=== PATIENT | female | born 1945 | race Caucasian/White ===

== ENCOUNTER 2021-08-30 14:46 | Outpatient (REF) | payer MEDICARE, OTHER, SELFPAY ==
[2021-08-30 16:53] LABS: MANUAL DIFF FLAG NO
[2021-08-30 16:56] LABS: Basophils Percent Auto 0.4 % (0-2); Eosinophils Absolute Auto 0.1 X10*3/uL (0.0-0.4); Eosinophils Percent Auto 2.2 % (0-4); Hematocrit 41.1 % (37.0-47.0); Hemoglobin 14.3 g/dl (12.0-16.0); Imm Gran Abs Auto 0.01 X10*3/uL (0.00-0.03); Imm Gran Pct Auto 0.2 % (0.0-0.4); Lymphocytes Absolute Auto 1.5 X10*3/uL (1.2-4.9); Lymphocytes Percent Auto 32.9 % (20-40); Mean Corpuscular HGB Conc 34.8 g/dl (31.0-35.0); Mean Corpuscular Volume 94.9 fL (80.0-98.0); Mean Platelet Volume 9.8 fL (9.4-12.3); Monocytes Absolute Auto 0.5 X10*3/uL (0.1-1.2); Monocytes Percent Auto 10.7 % (2-11); Neutrophils Absolute Auto 2.4 x10*3/uL (2.0-8.3); Neutrophils Percent Auto 53.6 % (45-73); Platelet Count 226 X10*3/uL (160-400); Red Blood Count 4.33 X10*6/uL (4.20-5.50); Red Cell Distribution Width 11.9 % (11.0-16.0); White Blood Count 4.5 X10*3/uL (4.8-10.8)
[2021-08-30 17:29] LABS: Alanine Aminotransferase 22 U/L (0-31); Albumin Level 4.5 g/dL (3.5-5.0); Alkaline Phosphatase 78 U/L (39-117); Anion Gap 16 (12-20); Aspartate Amino Transferase 22 U/L (5-31); Bilirubin Total 0.8 mg/dL (0.0-1.0); Blood Urea Nitrogen 18 mg/dL (9-16); Carbon Dioxide 27 mmol/L (22-29); Chloride 105 mmol/L (96-108); Estimated Glomerular Filt Rate > 60; Glucose Random 92 mg/dL (60-115); Potassium 4.7 mmol/L (3.3-5.1); Sodium 143 mmol/L (135-145); Total Protein 7.3 g/dL (6.5-8.0)
== END 2021-08-30 14:47 | disposition home or self-care (01) ==
LOC: HO.HMGCLDS 14:46
PROVIDERS: PCP Internal Medicine; Visit Provider Internal Medicine
DX: D05.12 Intraductal carcinoma in situ of left breast (principal)
CPT/HCPCS: 36415; 80053; 85025

== ENCOUNTER 2022-04-06 11:50 | Outpatient (REF) | payer MEDICARE, OTHER, SELFPAY ==
--- NOTE | ~2022-04-06 | XR_ITS ---
EXAMINATION: XR BILATERAL HIPS WITH AP PELVIS CLINICAL INFORMATION: Right hip pain. COMPARISON: None TECHNIQUE: AP view of the pelvis and AP and frog lateral views of each hip were obtained. FINDINGS: Bony alignment and mineralization are normal. The bilateral acetabular joint spaces are well-maintained and show slight subchondral sclerosis and cortical irregularity. The femoral heads are smooth. There is a sclerotic, well marginated bone island situated within the left ilium. No fracture or dislocation is seen. The sacroiliac joints are symmetric and well-maintained. The pubic symphysis is intact, with osteitis pubis. No foreign body is seen. 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 No fracture or dislocation is seen.
--- NOTE | ~2022-04-06 | XR_ITS ---
EXAMINATION: XR KNEE AP STANDING, BILATERAL CLINICAL INFORMATION: Bilateral knee pain. COMPARISON: None TECHNIQUE: AP bilateral standing view of the bilateral knees was obtained, together with bilateral lateral weightbearing views. FINDINGS: Bony alignment and mineralization are normal. The bilateral lateral, medial and patellofemoral joint space compartments are well-maintained. There is minimal peripheral osteophyte formation of the bilateral medial and patellofemoral compartments. No fracture, dislocation or joint effusion is seen bilaterally. There is no foreign body. XR/XR knee standing BI IMPRESSION: 1. There is minimal osteoarthritic change of the bilateral medial and patellofemoral joint space compartments. 2. No fracture, dislocation or joint effusion is seen bilaterally.
== END 2022-04-06 11:51 | disposition home or self-care (01) ==
LOC: HO.HMGCX 11:50
PROVIDERS: PCP Internal Medicine; Visit Provider Internal Medicine
DX: M25.551 Pain in right hip (principal); M25.552 Pain in left hip; M25.561 Pain in right knee; M25.562 Pain in left knee
CPT/HCPCS: 73521; 73565

== ENCOUNTER 2024-03-20 12:07 | Outpatient (AMB) | payer MEDICARE, OTHER, SELFPAY ==
[2024-03-20 12:56] VITALS: BP 130/70; PULSE 89; TEMP 36.9; O2SAT 99; BMI 22.9
--- NOTE | 2024-03-20 12:56 | AM.OFFWIN_ITS ---
Intake Vital Signs 03/20/24 12:56 Height 5 ft 6 in Weight 142 lb BMI 22.9 BP 130/70 Blood Pressure Location Lt brachial Position Sitting Pulse 89 Pulse Source Pulse Oximeter Temp 98.4 F Temp Source Oral Pulse Oximetry (%) 99 Oxygen Delivery Method Room Air Intake Visit Reasons: EP-extreme body ache Intake Note: Pt is here today for a walk in visit. Pt c/o chills, body aches for a month. Patient Tobacco Use Status: Never used Tobacco Allergies Egg/Pro Allergy (Unknown, Uncoded 03/20/24 13:00) sick to her stomach HPI HPI Comments History of Present Illness Details 78 y/o female patient who presents to [facility] walk in clinic with c/o generalized weakness, body and muscle aches for few months now. She has H/o Right breast CA, s/p Lumpectomy and radiation 2022. She is being followed by [facility] Oncology. Pt has an appointment with PCP Apr 11. [facility] Medical History Abnormal colonoscopy Annual physical exam Breast mass, left Ductal carcinoma in situ (DCIS) of left breast Hearing loss Hyperlipidemia Insomnia Mammogram normal Osteopenia Osteoporosis Toenail fungus Vitamin D deficiency Surgical History No pertinent past surgical history Family History Father No problems noted. Mother Diabetes Melanoma Uterine cancer Brother Substance use disorder Social History Housing: House Alcohol intake: current Alcohol intake frequency: a few times a week Patient Tobacco Use Status: Never used Tobacco e-Cigarette/Vaping Use: Never Used Current occupational status: retired Cognitive needs: No Hearing needs: Yes Vision needs: Yes Review of Systems Const All systems reviewed & are unremarkable except as noted in HPI and below Physical Exam Vital Signs: Last Vital Signs Temp 98.4 F 03/20/24 12:56 Pulse 89 03/20/24 12:56 BP 130/70 03/20/24 12:56 Pulse Ox 99 03/20/24 12:56 Oxygen Delivery Method Room Air 03/20/24 12:56 BMI result Body Mass Index 22.9 Const General: no acute distress Nutritional Appearance: underweight Orientation/consciousness: patient oriented x3 Resp Effort & Inspection: normal respiratory effort and able to speak in complete sentences Auscultation: clear to auscultation bilaterally, no crackles, no rales, no rhonchi and no wheezes Cardio Heart sounds: S1 normal heart sound present and S2 normal heart sound present Skin Other: Skin dry and Pale. Warm to touch. General skin exam: dry skin Neuro General: patient oriented x3, gait normal and moves all extremities Psych Speech and movement: Normal speech and movement present Assessment & Plan Assessment & Plan (1) Fatigue: Code(s): R53.83 - Other fatigue Qualifiers: Fatigue type: unspecified Qualified Code(s): R53.83 - Other fatigue Plan: Pt to f/u with PCP for further evaluation. She needs recent Lab work. Advised Pt to f/u with her Oncology for routine F/U. (2) Weakness generalized: Code(s): R53.1 - Weakness Plan: Pt to f/u with PCP for further evaluation. She needs recent Lab work. Advised Pt to f/u with her Oncology for routine F/U. Advised Emergency Room visit if symptoms worse. Coding Level of Care Code Est Pt Level 3 (19184) Diagnoses Fatigue, unspecified type R53.83 Fatigue type: unspecified Weakness generalized R53.1 Time Spent (min) 15
== END 2024-03-20 13:42 | disposition home or self-care (01) ==
PROVIDERS: PCP Internal Medicine; Visit Provider Nurse Practitioner Family
DX: R53.83 Other fatigue (principal); R53.1 Weakness

== ENCOUNTER → 2024-03-20 12:07 | Outpatient (BNVA) | payer MEDICARE, OTHER, SELFPAY | PROVIDERS: PCP Internal Medicine; Visit Provider Nurse Practitioner Family | DX: R53.83 Other fatigue (principal); R53.1 Weakness | CPT/HCPCS: 99212 ==

== ENCOUNTER → 2024-03-28 14:11 | Outpatient (BNVA) | payer MEDICARE, OTHER, SELFPAY | PROVIDERS: PCP Internal Medicine; Visit Provider Internal Medicine | DX: M35.3 Polymyalgia rheumatica (principal); C50.911 Malignant neoplasm of unspecified site of right female breast | CPT/HCPCS: 96127; 99212 ==

== ENCOUNTER 2024-05-08 10:03 | Outpatient (REF) | payer MEDICARE, OTHER, SELFPAY ==
--- OUTSIDE RECORDS SUMMARY | 2024-05-08 11:42 | XMS_ITS | Clinical Summary ---
Author Organization [facility] Address [address] [place] [address] Care Team Providers Care Track Superintendent Name Role Phone Mary Crespo MD Primary Care Provider [phone] Allergies No known active allergies Medications Medication Sig Dispensed Refills Start Date End Date Status anastrozole (ARIMIDEX) 1 MG tablet Take 1 tablet (1 mg total) by mouth daily 0 Active Multiple Vitamin (MULTI VITAMIN DAILY PO) Take by mouth. 0 Active Biotin 1000 MCG CHEW Chew by mouth. 0 Active Lapoint-3 Fatty Acids (FISH OIL PO) Take by mouth. 0 Active vitamin D3 (cholecalciferol) 25 MCG (1000 UT) tablet Take 1 tablet (25 mcg total) by mouth daily. 0 Active Misc Natural Products (GINKOGIN PO) Take by mouth. 0 Active Apoaequorin (PREVAGEN PO) Take by mouth. 0 Active Turmeric 500 MG TABS Take by mouth. 0 Active Multiple Minerals-Vitamins (UUFNLZA-KAKVGARYH-LQX C-D3 PO) Take by mouth. 0 Active Active Problems No known active problems Family History Medical History Relation Name Comments Cancer Mother Melonoma Relation Name Status Comments Mother Social History Tobacco Use Types Packs/Day Years Used Date Smoking Tobacco: Never Smokeless Tobacco: Never Alcohol Use Standard Drinks/Week Comments Yes 0 (1 standard drink = 0.6 oz pur e alcohol) Social Sex and Gender Information Value Date Recorded Sex Assigned at Not on file Gender Identity Not on file Sexual Orientation Not on file Job Start Date Occupation Industry Not on file Not on file Not on file Last Filed Vital Signs Vital Sign Reading Time Taken Comments Blood Pressure 125/59 08/24/2023 9:15 AM EDT Pulse 68 08/24/2023 9:15 AM EDT Temperature 36.7 ??C (98.1 ??F) 08/24/2023 9:15 AM ED T Respiratory Rate - - Oxygen Saturation 100% 08/24/2023 9:15 AM EDT Inhaled Oxygen Concentration - - Weight 61.2 kg (135 lb) 08/24/2023 9:15 AM EDT Height 167.6 cm (5' 6 ) 01/02/2023 9:34 AM EDT Body Mass Index 21.79 01/02/2023 9:34 AM EDT Plan of Treatment Health Maintenance Due Date Last Done Comments Hepatitis C Screening 1945 COVID-19 Vaccine (#1) 1951 Pneumococcal Vaccine (1 of 2 - PCV) 1952 Depression Screening 1958 Preventative Health Evaluation 1964 DTap / Tdap / Td (1 - Tdap) 1965 Shingrix-Zoster Vaccine (1 of 2) 1965 Fall Risk Assessment 2011 Osteoporosis Screening (DEXA Scan) 2011 RSV Adult > 60+ Yrs or Pregn ant (1 - 1-dose 75+ series) 2021 Influenza Vaccine (#1) 2023 Hepatitis B Vaccines Aged Out No long er eligible based on patient's age to complete this topic RSV Ped < 20 months Aged Out No longe r eligible based on patient's age to complete this topic Care Teams Track Superintendent Relationship Specialty Start Date End Date Mary Crespo MD [address] [facility] [place] [address] PCP - General Licensed Practical Nurse Instructor 08/15/21
--- OUTSIDE RECORDS SUMMARY | 2024-05-08 11:42 | XMS_ITS | Continuity of Care Document ---
Author Organization [facility] Address [address] [place] [id number] Care Team Providers Care [employer] Name Role Phone Mary Crespo MD Primary Care Physician Encounter [facility] Date(s): 04/18/24 - 04/19/[address] [id number] Encounter Diagnosis Exacerbation of PMR(Final) - 04/16/24 Discharge Disposition: A-D/C Home Attending Physician: Raad Rojas MD, Adriana Lea Admitting Physician: Carla Bueno MD Referring Physician: Not on Staff, Referring MD Encounter Type: Disch IP Allergies, Adverse Reactions, Alerts Substance Criticality Severity Reaction Reaction Severity Status Apples Eggs (edible) Active Egg Allergy Active Medications acetaminophen 500 mg oral tablet 2 tablet = 1,000 mg, By Mouth, 3 times a day, PRN as needed for pain, # 24 tablet, 0 Refills, Maintenance, 03/23/24 2:45:00 PM EST, Tablet, [facility], Partial fill upon patient request if the prescription is for a schedule II opioid drug., 167.6, cm, 03/23/24 7:09:00 EST, Height, 63.8, kg, 03/21/24 19:08:00 EST, Dry Weight Start Date: 03/23/24 Status: Ordered Quantity: 24.0 Unit: tablet Repeat number: 1 Acetaminophen Tablet 650 mg, Tablet, By Mouth, Every 4 hours, PRN for Pain , Mild, Temperature Greater than 100.5, Routine, 04/16/24 3:34:00 PM EST Start Date: 04/16/24 Stop Date: 04/20/24 Status: Discontinued Repeat number: 1 anastrozole 1 mg oral tablet 1 tablet = 1 mg, By Mouth, Daily, # 30 tablet, 0 Refills, Maintenance, 03/21/24 8:51:00 PM EST, Tablet, Partial fill upon patient request if the prescription is for a schedule II opioid drug. Start Date: 03/21/24 Status: Ordered Quantity: 30.0 Unit: tablet Repeat number: 1 calcium-vitamin D 250 mg-200 intl units oral tablet 1 tablet, By Mouth, Every Sunday, Sunday and Sunday, # 6 tablet, 0 Refills, Maintenance, :27:00 PM EST, Tablet, [facility], Partial fill upon patient request if the prescription is for a schedule II opioid drug., 1 tablet By Mouth Every Sunday, Sunday and Sunday,x14 days, 167, cm, 04/19/24 1:40:00 EST, Height, 61, kg, 04/17/24 2:51:00 EST, Dry Weight Start Date: 04/19/24 Stop Date: 05/03/24 Status: Ordered Quantity: 6.0 Unit: tablet Repeat number: 1 famotidine 40 mg oral tablet 1 tablet = 40 mg, By Mouth, Daily Start Date: 04/16/24 Status: Ordered Repeat number: 1 oxyCODONE 5 mg oral tablet 5 mg, 1, tablet, By Mouth, Every 6 hours, PRN, # 7 tablet, Refills 0, Tot. Refills 0, Maintenance, Pain , Severe, 03/23/24 2:45:00 PM EST, Route to Pharmacy Electronically, [facility], Partial fill upon patient request if the prescription is for a schedule II opioid drug., 167.6, cm, 03/23/24 7:09:00 EST, Height, 63.8, kg, 03/21/24 19:08:00 EST, Dry Weight Start Date: 03/23/24 Status: Ordered Quantity: 7.0 Unit: tablet Repeat number: 1 predniSONE 50 mg oral tablet 1 tablet = 50 mg, By Mouth, Daily, for 14 days, # 14 tablet, 0 Refills, Acute 05/03/24 1:27:00 PM EST, 04/19/24 1:27:00 PM EST, Tablet, [facility], Partial fill upon patient request if theprescription is for a schedule II opioid drug., 167, cm, 04/19/24 1:40:00 EST, Height, 61, kg, 04/17/24 2:51:00 EST, Dry Weight Start Date: 04/19/24 Stop Date: 05/03/24 Status: Ordered Quantity: 14.0 Unit: tablet Repeat number: 1 Results Radiology Reports * Exam Date Time Procedure Performing Provider Status 04/16/24 11:[address] Cervical Spine W/O Contrast Gail Coffey; Auth (Verified) Notes: (CT Cervical Spine W/O Contrast) Reason For Exam: Trauma RESULT: CT Cervical Spine W/O Contrast CT Head/Brain W/O Contrast, CT Cervical Spine W/O Contrast Hx of Present Illness: pt with h of MPR. was getting off the toilet and felt dizzy and syncopized. Thinks she hit head. Not on thinners. Is in excruciating pain from PMR; Reason: Trauma; Clinical Question(s): Hematoma COMPARISON: CT brain 03/21/2024 TECHNIQUE: Incremental CT without contrast through the head was formatted in axial and coronal plane. Spiral CT without contrast through the cervical spine was formatted in 3 planes. Automatic tube modulation was used for the cervical spine and iterative dose reconstruction was used for both the head and cervical spine to optimize scan parameters and image quality. CTDIvol Body: 8.30 mGy, DLP Body: 227 mGy*cm. CTDIvol Head: 39.80 mGy, DLP Head: 672 mGy*cm. FINDINGS - CT BRAIN: BRAIN: No parenchymal hemorrhage, midline shift or mass effect. Granger-white matter differentiation is intact. No acute infarct. No white matter lesions. Mild prominence of the ventricles and sulci consistent with cortical and cerebellar parenchymal volume loss. EXTRA-AXIAL SPACES: No subdural or epidural collections. CALVARIUM, SKULL BASE AND SOFT TISSUES: No fractures or suspicious bony lesions. Trace right mastoid effusion. Remaining visualized paranasal sinuses and mastoid air cells are clear. Visualized orbits and globes are intact. The extracranial soft tissues are unremarkable. FINDINGS - CT CERVICAL SPINE: SPINE: No fracture. No acute osseous abnormalities. There is straightening and partial reversal of cervical lordosis. Grade 1 anterolisthesis C3 on C4.There is moderate multilevel degenerative loss of disc height with endplate osteophytes. Moderate multilevel facet arthropathy with partial fusion of C2-C3 facets. No locked or perched facet. OTHER BONES: Partially-imaged clavicles, upper ribs and scapulae are intact. SOFT TISSUES AND LUNG APICES: Soft tissues unremarkable. Biapical pleural-parenchymal scarring. IMPRESSION: No acute abnormality of the head or cervical spine. Multilevel degenerative changes. WSN: [id number] Ordering Physician: Seth Allred Dictated By: Rafa Hahn MD Dictated Date/Time: 04/16/24 12:13 p Reviewed By: Rafa Hahn MD Signed By: Rafa Hahn MD Signed Date/Time: 04/16/24 12:13 pm Transcribed By: ROME Transcribed Date/Time: 04/16/24 12:05 pm * Exam Date Time Procedure Performing Provider Status 04/16/24 11:[address] Head/Brain W/O Contrast Gail Tello; Auth (Verified) Notes: (CT Head/Brain W/O Contrast) Reason For Exam: Trauma RESULT: CT Head/Brain W/O Contrast CT Head/Brain W/O Contrast, CT Cervical Spine W/O Contrast Hx of Present Illness: pt with h of MPR. was getting off the toilet and felt dizzy and syncopized. Thinks she hit head. Not on thinners. Is in excruciating pain from PMR; Reason: Trauma; Clinical Question(s): Hematoma COMPARISON: CT brain 03/21/2024 TECHNIQUE: Incremental CT without contrast through the head was formatted in axial and coronal plane. Spiral CT without contrast through the cervical spine was formatted in 3 planes. Automatic tube modulation was used for the cervical spine and iterative dose reconstruction was used for both the head and cervical spine to optimize scan parameters and image quality. CTDIvol Body: 8.30 mGy, DLP Body: 227 mGy*cm. CTDIvol Head: 39.80 mGy, DLP Head: 672 mGy*cm. FINDINGS - CT BRAIN: BRAIN: No parenchymal hemorrhage, midline shift or mass effect. Granger-white matter differentiation is intact. No acute infarct. No white matter lesions. Mild prominence of the ventricles and sulci consistent with cortical and cerebellar parenchymal volume loss. EXTRA-AXIAL SPACES: No subdural or epidural collections. CALVARIUM, SKULL BASE AND SOFT TISSUES: No fractures or suspicious bony lesions. Trace right mastoid effusion. Remaining visualized paranasal sinuses and mastoid air cells are clear. Visualized orbits and globes are intact. The extracranial soft tissues are unremarkable. FINDINGS - CT CERVICAL SPINE: SPINE: No fracture. No acute osseous abnormalities. There is straightening and partial reversal of cervical lordosis. Grade 1 anterolisthesis C3 on C4.There is moderate multilevel degenerative loss of disc height with endplate osteophytes. Moderate multilevel facet arthropathy with partial fusion of C2-C3 facets. No locked or perched facet. OTHER BONES: Partially-imaged clavicles, upper ribs and scapulae are intact. SOFT TISSUES AND LUNG APICES: Soft tissues unremarkable. Biapical pleural-parenchymal scarring. IMPRESSION: No acute abnormality of the head or cervical spine. Multilevel degenerative changes. WSN: [id number] Ordering Physician: Seth Allred Dictated By: Rafa Hahn MD Dictated Date/Time: 04/16/24 12:13 p Reviewed By: Rafa Hahn MD Signed By: Raaf Hahn MD Signed Date/Time: 04/16/24 12:13 pm Transcribed By: ROME Transcribed Date/Time: 04/16/24 12:05 pm Vital Signs Most recent to oldest [Reference Range]: 1 2 3 Height 167 cm (04/19/24 1:40 AM) 167 cm (04/18/24 8:50 PM) 167 cm (04/18/24 1:21 PM) Weight 61.0 kg (04/18/24 1:21 PM) 61.0 kg (04/17/24 1:56 AM) Oxygen Saturation [94-100 %] 98 % (04/19/24 2:00 PM) 100 % (04/19/24 8:00 AM) 98 % (04/19/24 1:40 AM) Pulse Rate [55-90 bpm] 72 bpm (04/19/24 2:00 PM) 87 bpm (04/19/24 8:00 AM) 77 bpm (04/19/24 1:40 AM) Body Mass Index [18.5-24.99 kg/m2] 21.87 kg/m2 (04/18/24 1:21 PM) 21.87 kg/m2 (04/17/24 1:56 AM) Blood Pressure [90-138/55-84 mm Hg] 125/50mm Hg (04/19/24 2:00 PM) 128/49mm Hg (04/19/24 8:00 AM) 120/57mm Hg (04/19/24 1:40 AM) Respiratory Rate [16-30 br/min] 16 br/min (04/19/24 2:00 PM) 16 br/min (04/19/24 8:00 AM) 18 br/min (04/19/24 2:42 AM) Temperature [96.8-100.4 DegF] 98.0 DegF (04/19/24 2:00 PM) 97.9 DegF (04/19/24 8:00 AM) 97.6 DegF (04/19/24 1:40 AM) Mode of Delivery (Oxygen) Room air (04/19/24 2:00 PM) Room air (04/19/24 8:00 AM) Room air (04/19/24 1:40 AM) Blood pressure sites Arm, left (04/19/24 2:00 PM) Arm, left (04/19/24 8:00 AM) Arm, right (04/19/24 1:40 AM) Temperature Route Oral (04/19/24 2:00 PM) Oral (04/19/24 8:00 AM) Oral (04/19/24 1:40 AM) Dry Weight 61.0 kg (04/17/24 1:56 AM) History and physical note * Event Display: History and Physical Hospital Authored Date: Admission evaluation note * Sugar Booth MD: PERFORM Event Display: Admission Note Authored Date: [id number] Patient: ??DIANA DEL RIO ? Age:??78 Years?Sex:??Female?:??1945?? Chief Complaint/Reason for Consultation fell at 2am hit head no LOC no thinners. stated she was dizzy after. was able to get herself up standing but increasingly more weak History of Present Illness 78-year-old female with past medical history of breast cancer in remission who presented to ED withgeneralized weakness. ?? Patient has been having??generalized muscle weakness and pain??for several months??which??she was diagnosed with PMR??during last admissions in March??and was started on steroid,??Patient reported that she continued taking prednisone 20 mg??which she thinks??is helping??during the morning but herlower extremity pain was getting worse??particularly at night??and yesterday her legs also gave outcausing her to be nauseated dizzy and striking right side of the head on ground.?? Although patientwas able to get up by herself but has been??difficulty ambulating without assistance.?? Patient lives alone??at baseline??and normally??independent.?Denies smoking or illicit drug use,??has been intermittently having fever as well.?Patient denies chest pain, dysuria, hematuria, cough, abdominal pain,??sore throat,??neck stiffness/pain,??headache.? Temperature 99.4, BP 121/52, on room air saturating 97, heart rate 82 Hemoglobin 11.3 at baseline, MCV 101.2 Sedimentation 58 Glucose 130 Creatinine 0.7 CRP 3.2 CK 23, high sen troponin less than 6 UA shows 1 WBC, negative nitrates and leukocyte not suggestive of infection CT head and cervical without acute abnormality, multilevel degenerative changes > There is straightening and partial reversal of cervical lordosis. Grade 1 anterolisthesis C3 on C4. There is moderate multilevel degenerative loss of disc height with endplate osteophytes. Moderate multilevel facetarthropathy with partial fusion of C2-C3 facets. No locked or perched facet. EKG shows normal sinus rhythm without acute ST-T changes Oxycodone 2.5 mg given in ED ?? Patient recently hospitalized between 03/21 to 03/23 due to generalized body pain as well as concern for shuffling gait.?? Patient had an MRI brain which showed no evidence of infarct, mass effect or abnormal findings.?? Minimal T2 signal abnormality in the supratentorial white matter is nonspecific.?? Sinus disease.?? MRI lumbar showed mild degenerative changes with only mild canal stenosis at L4-L5, no nerve root impingement at any level, mild nonspecific edema within the posterior paraspinal muscles, nonspecific fluid within the right posterior pelvis, clinical correlation. Patient was discharged with prednisone 20 mg for 14 days,??PCP and rheumatology follow-up.?? PT also recommended outpatient??PT.??it was noted to be significant improvement with prednisone on the second day??which is why??it was thought to be 2/2??PMR.?? Review of Systems None except as above Objective Vital Signs?? Temperature: 99.2 DegF (04/16/24 17:07:00) Temperature Route: Oral (04/16/24 17:07:00) Pulse Rate: 82 bpm (04/16/24 17:07:00) Respiratory Rate: 18 br/min (04/16/24 19:33:00) Systolic Blood Pressure: 121 mm Hg (04/16/24 17:07:00) Diastolic Blood Pressure:??52 mm Hg??Low (04/16/24 17:07:00) Blood pressure sites: Arm, right (04/16/24 17:07:00) Mean Arterial Pressure: 75 mm Hg (04/16/24 17:07:00) Pulse Pressure: 69 mm Hg (04/16/24 17:07:00) Oxygen Saturation: 97 % (04/16/24 17:07:00) Mode of Delivery (Oxygen): Room air (04/16/24 17:07:00) Early Warning Score: 0 (04/16/24 19:33:54) ?? Physical Exam Gen- not in acute distress,comfortably lying on bed, speaking in full sentences. HEENT- Normocephalic, Atraumatic, No pallor, icterus Neck-supple, no JVD Heart-S1S2(+),??regular, no murmurs. lungs- Clear, b/l air entry, no wheezing. Abdomen-soft, nontender,nondistended,??bowel sounds present, No guarding. Extremities-pulses palpable. ??Patient has??tenderness??on extremities bilateral upper shoulder,??bilateral lower extremities??most prominent on the knees,??no swelling,??has at least??3-4 out of 5??strength in bilateral lower and upper extremities,??no remarkable sensation loss.?? Neurological- AAO??3.?? Psychiatric-patient???s mood is stable. Assessment/Plan Diagnoses Anemia ??(D64.9) Fall ??(W19.XXXA) History of breast cancer ??(Z85.3) PMR (polymyalgia rheumatica) ??(M35.3) ?? Assessment:??78-year-old female with past medical history of breast cancer in remission who presented to ED with generalized weakness. ?? Fall (W19.XXXA):??Fall at night when she woke up and went to bathroom,??denies LOC was awake and alert and oriented and stand up by herself.?Reports her legs gave up.?Trauma workup is negative.??CT head and CT cervical.?? EKG normal sinus rhythm, Trop negative denies chest pain ?? Orthostatic vitals PT eval ?? PMR (polymyalgia rheumatica) (M35.3):??Patient presented with??several months??history of??bilateral??upper and lower extremity muscle and joint pains.?She has elevated ESR and??mildly elevated CRP.?She had a robust response to prednisone??in March??and was??presumed to be PMR.?Patient was taking prednisone 20 mg daily,??which she reports having??improvement during the days but at night she still have pain and weakness.?She had a fall yesterday at night,??denies LOC.??LARS panel was negative on 03/2024, RF slightly elevated to 17. ?? Plan: Switch prednisone??20 mg daily to 10 mg twice daily resume Famotidine for GI prophylaxis?? Rheumatology appointment scheduled in May 01 Added on TSH?? PT eval Tylenol for mild to moderate pain??and Oxycodone 5 mg as needed for severe pain Will monitor the response from??twice daily prednisone,??if no significant improvement??patient might be also having fibromyalgia??and may benefit from starting??antidepressant ?? 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 Added on??iron, TIBC, ferritin, B12 ?? VTE Prophylaxis:??Lovenox subcu ?VTE Prophylaxis Assessment:??VTE Prophylaxis Ordered ?? History of breast cancer (Z85.3):??Resume anastrozole ?? Discharge Planning:??Pending clinical course, PT eval? Ongoing Medical Necessity:??Polyarthralgia, polymyalgia ?? Code Status:??DNR/DNI confirmed with patient ?Order Code Status:??Code Status Ordered ?? Pt is seen on 04/16 ? Histories Allergies Allergies ?(Active and Proposed Allergies Only) Egg Allergy? (Severity: Unknown severity, Onset: Unknown) Apples? (Severity: Unknown severity, Onset: Unknown) ?Reactions: Eggs (edible) ? Past Medical History/Problem List No problems documented. ? Past Surgical History No surgery history documented. ? Social History No social history documented. ? Family History No Family History documented. ? Medications Home Medications Acetaminophen (acetaminophen 500 mg oral tablet)??2 tab(s) 1,000 Milligram By Mouth 3 times a day as needed as needed for pain Anastrozole (anastrozole 1 mg oral tablet)??1 tab(s) 1 Milligram By Mouth Daily Famotidine (famotidine 40 mg oral tablet)??1 tab(s) 40 Milligram By Mouth Daily Oxycodone (oxyCODONE 5 mg oral tablet)??5 Milligram 1 tablet By Mouth Every 6 hours as needed Pain , Severe PredniSONE (predniSONE 20 mg oral tablet)??1 tab(s) 20 Milligram By Mouth Daily ? Inpatient Medications Medications (15) Active SCHEDULED: (5) Anastrozole 1 mg Tablet (anastrozole 1 mg oral tablet) ??1 mg, By Mouth, Daily Enoxaparin 40 mg Inj (Enoxaparin Inj) ??40 mg 0.4 mL, Subcutaneous Injection, Daily Famotidine 20 mg Tablet (famotidine 20 mg oral tablet) ??20 mg, By Mouth, 2 times a day NaCl 0.9% Flush 3ml (NaCL 0.9% Flush) ??3 mL, IV Push, Every 8 hours PredniSONE 5 mg Tablet (predniSONE 20 mg oral tablet) ??10 mg, By Mouth, Every 12 hours CONTINUOUS: (0) PRN: (10) Acetaminophen 325 mg Tablet (Acetaminophen Tablet) ??650 mg, By Mouth, Every 4 hours Dextromethorphan-Guaifenesin 20 mg-200 mg/10 mL Liqu UD (Robitussin DM Liquid) ??10 mL, By Mouth, Every 4 hours Docusate Sodium 100 mg Capsule (Docusate Sodium Capsule) ??100 mg 1 capsule, By Mouth, 2 times a day Melatonin 3 mg Tablet (Melatonin Tablet) ??3 mg, By Mouth, Daily at bedtime NaCl 0.9% Flush 3ml (NaCL 0.9% Flush) ??3 mL, IV Push, Every 8 hours Ondansetron 2mg/mL Inj (2mL Vial) (Ondansetron Inj) ??4 mg, IV Push Slowly, Every 30 minutes OxyCODONE 5 mg IR Tablet (oxyCODONE 5 mg oral tablet) ??5 mg, By Mouth, Every 6 hours Polyethylene Glycol 17 Gm Powder (MiraLax Powder) ??17 Gm 1 pack/packet, By Mouth, Daily Senna Tablet ??8.6 mg 1 tablet, By Mouth, 2 times a day Simethicone 80 mg Chewable Tablet (Simethicone Tablet) ??80 mg, Chew, 3 times a day ? Results Recent Labs BLOOD COUNT & DIFF WBC 10.0 k/mm3 ()?? 04/16/2024 11:47 RBC 3.35 m/mm3 (Low)?? 04/16/2024 11:47 Hgb 11.3 Gm/dL (Low)?? 04/16/2024 11:47 Hct 33.9 % (Low)?? 04/16/2024 11:47 MCV 101.2 femtoliters (High)?? 04/16/2024 11:47 MCH 33.7 pg ()?? 04/16/2024 11:47 MCHC 33.3 Gm/dL ()?? 04/16/2024 11:47 Platelet Count 235 k/mm3 ()?? 04/16/2024 11:47 RDW-SD 48.4 femtoliters (High)?? 04/16/2024 11:47 MPV 9.0 femtoliters (Low)?? 04/16/2024 11:47 Nucleated RBC (Automated) 0.0 #/100 WBC'S ()?? 04/16/2024 11:47 Abs. NRBC 0.0 k/mm3 ()?? 04/16/2024 11:47 Abs. Neut 9.2 k/mm3 (High)?? 04/16/2024 11:47 Abs. Lymph 0.4 k/mm3 (Low)?? 04/16/2024 11:47 Abs. Cass 0.3 k/mm3 (Low)?? 04/16/2024 11:47 Abs. Eo 0.0 k/mm3 ()?? 04/16/2024 11:47 Abs. Baso 0.0 k/mm3 ()?? 04/16/2024 11:47 Neut % 92.8 % (High)?? 04/16/2024 11:47 Lymph % 3.7 % (Low)?? 04/16/2024 11:47 Cass % 2.9 % (Low)?? 04/16/2024 11:47 Eos % 0.0 % ()?? 04/16/2024 11:47 Baso % 0.2 % ()?? 04/16/2024 11:47 Imm Gran 0.4 % ()?? 04/16/2024 11:47 Abs. Imm Gran 0.0 k/mm3 ()?? 04/16/2024 11:47 ?? CARDIAC CK, Total 23 units/L ()?? 04/16/2024 11:47 High Sensitivity Troponin (HSTnT) <6 ng/L ()?? 04/16/2024 11:47 ?? CHEM GENERAL Sodium 140 mmol/L ()?? 04/16/2024 11:47 Potassium 4.2 mmol/L ()?? 04/16/2024 11:47 Chloride 105 mmol/L ()?? 04/16/2024 11:47 Bicarbonate Level 24 mmol/L ()?? 04/16/2024 11:47 Anion Gap 11 mmol/L ()?? 04/16/2024 11:47 Glucose Level 130 mg/dL (High)?? 04/16/2024 11:47 BUN 19 mg/dL ()?? 04/16/2024 11:47 Creatinine-Blood 0.70 mg/dL ()?? 04/16/2024 11:47 Estimated GFR Creatinine 89 ML/MIN/1.73 M2 ()?? 04/16/2024 11:47 Calcium 9.4 mg/dL ()?? 04/16/2024 11:47 Protein, Total 6.3 Gm/dL ()?? 04/16/2024 11:47 Albumin 3.7 Gm/dL ()?? 04/16/2024 11:47 AG Ratio 1.4 ()?? 04/16/2024 11:47 Alkaline Phosphatase 90 units/L ()?? 04/16/2024 11:47 AST (SGOT) 24 units/L ()?? 04/16/2024 11:47 ALT (SGPT) 14 units/L ()?? 04/16/2024 11:47 Bilirubin, Total 0.8 mg/dL ()?? 04/16/2024 11:47 C-Reactive Protein 3.2 mg/dL (High)?? 04/16/2024 11:47 ?? HEME OTHER Sed Rate 58 mm/hr (High)?? 04/16/2024 11:47 ?? UA/URINALYSIS Appear/Color, Urine LIGHT YELLOW ()?? 04/16/2024 11:32 Clarity CLEAR ()?? 04/16/2024 11:32 Specific Bastian, Urine 1.013 ()?? 04/16/2024 11:32 pH, Urine 7.5 ()?? 04/16/2024 11:32 Albumin, Urine NEGATIVE ()?? 04/16/2024 11:32 Glucose, Urine NEGATIVE ()?? 04/16/2024 11:32 Ketones, Urine NEGATIVE ()?? 04/16/2024 11:32 Bilirubin, Urine NEGATIVE ()?? 04/16/2024 11:32 Hemoglobin, Urine NEGATIVE ()?? 04/16/2024 11:32 Nitrite, Urine NEGATIVE ()?? 04/16/2024 11:32 Leukocyte, Urine NEGATIVE ()?? 04/16/2024 11:32 Urobilinogen 2 mg/dL (Abnormal)?? 04/16/2024 11:32 WBC's, Urine 1 /HPF ()?? 04/16/2024 11:32 RBC's, Urine 2 /HPF ()?? 04/16/2024 11:32 Squamous Epith 1 /HPF ()?? 04/16/2024 11:32 Culture Indication CULTURE NOT INDICATED ()?? 04/16/2024 11:32 ? Abnormal Labs ?? BLOOD COUNT & DIFF Abs. Imm Gran?0.0 k/mm3 ()?04/16/2024 11:47 Abs. Lymph?0.4 k/mm3 (Low)?04/16/2024 11:47 Abs. Cass?0.3 k/mm3 (Low)?04/16/2024 11:47 Abs. NRBC?0.0 k/mm3 ()?04/16/2024 11:47 Abs. Neut?9.2 k/mm3 (High)?04/16/2024 11:47 Hct?33.9 % (Low)?04/16/2024 11:47 Hgb?11.3 Gm/dL (Low)?04/16/2024 11:47 Imm Gran?0.4 % ()?04/16/2024 11:47 Lymph %?3.7 % (Low)?04/16/2024 11:47 MCV?101.2 femtoliters (High)?04/16/2024 11:47 MPV?9.0 femtoliters (Low)?04/16/2024 11:47 Cass %?2.9 % (Low)?04/16/2024 11:47 Neut %?92.8 % (High)?04/16/2024 11:47 Nucleated RBC (Automated)?0.0 #/100 WBC'S ()?04/16/2024 11:47 RBC?3.35 m/mm3 (Low)?04/16/2024 11:47 RDW-SD?48.4 femtoliters (High)?04/16/2024 11:47 ?? CARDIAC High Sensitivity Troponin (HSTnT)?<6 ng/L () ?:47 ?? CHEM GENERAL AG Ratio?1.4 ()?04/16/2024 11:47 C-Reactive Protein?3.2 mg/dL (High)?04/16/2024 11:47 Estimated GFR Creatinine?89 ML/MIN/1.73 M2 ()?04/16/2024 11:47 Glucose Level?130 mg/dL (High)?04/16/2024 11:47 ?? HEME OTHER Sed Rate?58 mm/hr (High)?04/16/2024 11:47 ?? UA/URINALYSIS Albumin, Urine?NEGATIVE ()?04/16/2024 11:32 Appear/Color, Urine?LIGHT YELLOW ()?04/16/2024 11:32 Bilirubin, Urine?NEGATIVE ()?04/16/2024 11:32 Clarity?CLEAR ()?04/16/2024 11:32 Culture Indication?CULTURE NOT INDICATED ()?04/16/2024 11:32 Glucose, Urine?NEGATIVE ()?04/16/2024 11:32 Hemoglobin, Urine?NEGATIVE ()?04/16/2024 11:32 Ketones, Urine?NEGATIVE ()?04/16/2024 11:32 Leukocyte, Urine?NEGATIVE ()?04/16/2024 11:32 Nitrite, Urine?NEGATIVE ()?04/16/2024 11:32 Urobilinogen?2 mg/dL (Abnormal)?04/16/2024 11:32 ?? Note: Critical results are displayed in red. ? Urinalysis Albumin, Urine: NEGATIVE (11:32) Appear/Color, Urine: LIGHT YELLOW (11:32) Bilirubin, Urine: NEGATIVE (11:32) Clarity: CLEAR (:32) Culture Indication: CULTURE NOT INDICATED (11:32) Glucose, Urine: NEGATIVE (11:32) Hemoglobin, Urine: NEGATIVE (11:32) Ketones, Urine: NEGATIVE (11:32) Leukocyte, Urine: NEGATIVE (11:32) Nitrite, Urine: NEGATIVE (11:32) pH, Urine: 7.5 (11:32) RBC's, Urine: 2 /HPF (11:32) Specific Bastian, Urine: 1.013 (11:32) Squamous Epith: 1 /HPF (11:32) Urobilinogen: 2 mg/dL Abnormal (11:32) WBC's, Urine: 1 /HPF (11:32) ?? Blood Gases?? No qualifying data available. ? EKG study * Event Display: ECG 12-Lead Authored Date: Please click on pdf link to open report * Event Display: ECG 12-Lead Authored Date: [id number] Ventricular Rate: 86 BPM Atrial Rate: 86 BPM P-R Interval: 148 ms QRS Duration: 74 ms Q-T Interval: 340 ms QTC Calculation(Bazett): 406 ms P Douglass: 76 degrees R Douglass: 49 degrees T Douglass: 68 degrees Normal sinus rhythm Normal ECG No previous ECGs available Confirmed by [facility] ([id number] on 04/17/2024 8:38:20 AM [place]: DONAVON NARVAEZ,[place] [facility] * Zuleyka Blount RN: PERFORM, SIGN, VERIFY Event Display: [facility] Authored Date: [id number] Patient: DIANA DEL RIO Age: 78 years Sex: Female : 1945 Associated Diagnoses: None Author: Zuleyka Blount RN Findings Problem Related to Alteration in Comfort : Alteration in Comfort/new 04/19/2024 15:00 EST Alteration in Comfort Related to Disease process, Other: PMR Goals & Outcomes: Comfort Pt will report acceptable level of comfort & pain control Interventions Implemented: Comfort Assess pain using appropriate pain scale/tools, Assess aggravating factors & prevent them accordingly, Assess alleviating factors & promote them accordingly BH Goals/Interventions, Comfort Yes Comfort, Problem Start 04/18/2024 16:02 Reviewed plan with, Comfort Patient Patient Progression, Comfort Pt progressing according to plan Comfort, Problem Ongoing Yes . Evaluation Pateint alert and oriented to person, place, time, and event. Patient assessment done per biophysical flowsheet and medicated per may. Patient denies any nausea or vomiting. Patient expresses 4/10 pain given prn tylenol with good effect. Bed in lowest locked position and call barrios within reach.. Discharge Information Case Management Discharge Plan : Case Management Discharge Plan Data 04/19/2024 13:22 EST Discharge Level of Care at Discharge Home/Assisted/Foster Care (Modified) Discharge VNA/Hospice/Home Care In Error (In Error) Name of Agency #1 In Error (In Error) Service Categories #1 Physical Therapy, Nursing Home Service Comments #1 You are not home bound. You are agreeable to out patient physical therapy. The physician will write a script. Please follow up with your primary care physician. (Modified) Rehabilitation Discharge : Rehab Discharge Index 04/17/2024 9:05 EST Comments on treatment indicated 78 F hx of polymyalgia p/w generalized weakness and fall at home 2/2 dizziness. Pt is indep in functional mob, acute PT not indicated. Rec d/c HWS cRx for RW. Walker: distance >50 Full chart review completed Yes Hospital course Hospital course Other findings Pt is a low complex eval as circumstances leading to hosp impact POC and functional mob * Dena Phan: PERFORM, SIGN, VERIFY Event Display: Progress Note Hospital Authored Date: [id number] Patient: DIANA DEL RIO Age: 78 years Sex: Female : 1945 Associated Diagnoses: None Author: Dena Phan Findings Problem Related to Alteration in Comfort : Alteration in Comfort/new 04/18/2024 20:00 EST Alteration in Comfort Related to Disease process, Other: PMR Goals & Outcomes: Comfort Pt will report acceptable level of comfort & pain control Interventions Implemented: Comfort Assess pain using appropriate pain scale/tools, Assess aggravating factors & prevent them accordingly, Assess alleviating factors & promote them accordingly Goals/Interventions, Comfort Yes Comfort, Problem Start 04/18/2024 16:02 Reviewed plan with, Comfort Patient Patient Progression, Comfort Pt progressing according to plan Comfort, Problem Ongoing Yes . Alteration in Safety : Alteration in Safety/new 04/18/2024 20:00 EST Alteration in Safety Related to Other: Weakness, Fall Goals & Outcomes, Safety Psychosocial support will be provided to Pt/S.O. as needed, Pt/caregiver will state understanding of plan/goals of care, Pt will remain safe & injury free, Pt/caregiver will be offered appropriate resources & support, Pt/caregiver will verbalize understanding ofthe D/C plan Interventions, Safety Provide info on community resources for education, support, Provide teaching as needed, Discuss unsafe practices & situations with pt/S.O., Instruct pt on maintaining a safeenvironment, [place] pt frequently, Redirection; reorientation, Talk to patient regarding concerns BH Goals/Interventions, Safety Yes Safety, Problem Start 04/17/2024 2:35 Reviewed plan with, Safety Patient Patient Progression, Safety Pt progressing according to plan . Nursing Data Neurological Data. : Neurological Data. 04/18/2024 20:04 EST Tongue Disposition Midline Neurological Symptoms Weakness or loss of muscle strength Level of Consciousness Full Consciousness Orientated to person, place, time Person, Place, Time, Event Hallucinations None Facial Symmetry Intact Characteristics of Speech Clear and normal Swallowing Difficulty None Pupil description, left Regular Pupil description, right Regular Pupil reaction, left Brisk Pupil reaction, right Brisk Strength LUE 5-Active movement against gravity & full resistance Strength RUE 5-Active movement against gravity & full resistance Strength LLE 5-Active movement against gravity & full resistance Strength RLE 5-Active movement against gravity & full resistance Tone LUE Normal Tone RUE Normal Tone LLE Normal Tone RLE Normal Sensation LUE Intact Sensation RUE Intact Sensation LLE Intact Sensation RLE Intact Movement LUE Spontaneous Movement RUE Spontaneous Movement LLE Spontaneous Movement RLE Spontaneous Gait No disturbance Response Eye Opening Spontaneously Motor Response-Adult Obeys commands Verbal Response-Adult Oriented and converses [place] Coma Score 15 1 - 10 Pain Scale Score 5 Pain Interventions PRN medication, Rest Pain relief acceptable Yes Neuro WNL except Eyes and Movements Conjugate gaze: Move in same direction at same speed Memory Intact Swallow - Neuro Normal . Evaluation Met patient at bedside with no sign of repiratory distress or discomfort. Patient is A&Ox4, on RA, LS is clear, denies any SOB, chest pain, dizziness, N/V at this time. Skin is intact, except thebiopsy site on the right side of head; it is CDI. Abdomen is soft with +BS in all quadrant. Patientis continent of Bowel and bladder, voids without any issues. Ambulates to the bathroom without any issues. Call barrios is with reach, and patient is able to make her needs known. Medicated as per MAR, tolerated her med well. Patient was complaining of a mild headache, medicated with Tylenol with goodeffetct. Bed in lowest locked position with alarm on for safety. Frequent rounds maintained throughout the shift. See CIS for a full assessment.. Discharge Information Rehabilitation Discharge : Rehab Discharge Index 04/17/2024 9:05 EST Comments on treatment indicated 78 F hx of polymyalgia p/w generalized weakness and fall at home 2/2 dizziness. Pt is indep in functional mob, acute PT not indicated. Rec d/c HWS cRx for RW. Walker: distance >50 Full chart review completed Yes Hospital course Hospital course Other findings Pt is a low complex eval as circumstances leading to hosp impact POC and functionalmob * Raad Rojas MD, Adriana R: PERFORM, MODIFY Event Display: Progress Note Hospital Authored Date: [id number] Patient: ??DIANA DEL RIO ? Age:??78 Years?Sex:??Female?:??1945?patient is alert and oriented,??would like her CODE STATUS to be changed to full code Consult note * Gibran NARVAEZ, Vital C: PERFORM, MODIFY, MODIFY, MODIFY Event Display: Consultation Note Authored Date: Patient: ??DIANA DEL RIO ? Age:??78 Years?Sex:??Female?:??1945?? Chief Complaint Consulting Provider: Adriana Rojas MD Vascular Surgeon: Arnie Duncan MD Reason for Consult: Temporal Artery Biopsy History of Present Illness Ms. Del Rio is a 78yo female with hx of breast cancer??s/p??bilateral lumpectomies x2 followed by radiation, and now??on anastrazole.??Vascular surgery is being consulted??for bilateral??temporal artery bx, due to suspicion for??polymyalgia rheumatica. Upon my evaluation, pt is resting comfortably??in bed and in no acute distress. She tells me that her symptoms first started 3mo ago, with?? right jaw stiffness, fevers/ chills, muscle rigidity & tenderness. She says that her symptoms progressively worsened until she could not??ambulate, and ultimately??reported to the ED 3 wks ago. Shewas treated with prednisone, which she responded well to, and was??dx with polymyalgia rheumatica. She had??good response to steroids, and was ultimately discharged. Her symptoms??reoccurred, progressively worsened??until she could not ambulate, leading to representation to the ED. She tells me that she feels much better today. She is tolerating PO??intake well without any??nausea/ emesis. She is ambulating well without any stiffness, or difficulty. She does not endorse any headaches or concerns. Labs are notable for CRP 3.2 yesterday. She remained hemodynamically stable throughout my evaluation.? Review of Systems A comprehensive review of system was completed, and is either negative or as indicated above.?? Physical Exam Vitals & Measurements T:??97.9?F?? HR:??86??(Peripheral)?? RR:??18?? BP:??147/66?? SpO2:??97%?? HT:??167??cm?? WT:??61.0??kg?? BMI:??21.87?? Constitutional: Alert, in no distress. Mental Status: Oriented to person, place and time. Head: Normocephalic. Eyes: Extraocular muscles intact. Ear, Nose and Throat: Oropharynx clear, mucous membranes moist. Trachea midline. Neck: Supple, Full range of motion. Respiratory: Clear to auscultation. No wheezing, rales or rhonchi. Cardiovascular:??RRR Gastrointestinal: Abdomen soft, non-tender, non-distended. Genitourinary: No costovertebral angle tenderness. Neurologic: Moves all extremities spontaneously. Sensation intact bilaterally. Skin: No rashes or lesions. No petechiae or purpura.?? Musculoskeletal: No cyanosis or clubbing. No gross deformities. Normal range of motion. Assessment/Plan Ms. Del Rio is a 78yo female with new dx of polymyalgia rheumatica, for which vascular surgery has been consulted for temporal artery biopsy. I have discussed with primary team (Dr. Rojas), who tells me that they??are continuing to work on other differentials that may explain pt's symptoms. In the meantime, we can plan for operative bx pending OR availability, either tomorrow 04/18 or sometime next week.? Case discussed with Dr. Duncan Vascular Surgery Problem List/Past Medical History Ongoing No qualifying data Procedure/Surgical History No qualifying data available. Home Medications Acetaminophen: 1,000 mg = 2 tablet, By Mouth, 3 times a day, PRN (as needed for pain) Anastrozole: 1 mg = 1 tablet, By Mouth, Daily Famotidine: 40 mg = 1 tablet, By Mouth, Daily Oxycodone: 5 mg = 1 tablet, By Mouth, Every 6 hours, PRN (Pain , Severe) PredniSONE: 20 mg = 1 tablet, By Mouth, Daily Allergies Apples??(Eggs (edible)) Egg Allergy Family History No family history recorded. Lab Results Labs Last 24 Hours BLOOD COUNT & DIFF ? Event Name?? Event Result?? Date/Time?? WBC 8 k/mm3 04/17/24 08:02:00 RBC 3.45 m/mm3??Low 04/17/24 08:02:00 Hgb 11.2 Gm/dL??Low 04/17/24 08:02:00 Hct 34.8 %??Low 04/17/24 08:02:00 MCV 100.9 femtoliters??High 04/17/24 08:02:00 MCH 32.5 pg 04/17/24 08:02:00 MCHC 32.2 Gm/dL??Low 04/17/24 08:02:00 Platelet Count 265 k/mm3 04/17/24 08:02:00 MPV 9 femtoliters??Low 04/17/24 08:02:00 Nucleated RBC (Automated) 0 #/100 WBC'S 04/17/24 08:02:00 ? CHEM GENERAL ? Event Name?? Event Result?? Date/Time?? Sodium 142 mmol/L 04/17/24 08:02:00 Chloride 104 mmol/L 04/17/24 08:02:00 Bicarbonate Level 26 mmol/L 04/17/24 08:02:00 Anion Gap 12 mmol/L 04/17/24 08:02:00 Glucose Level 99 mg/dL 04/17/24 08:02:00 BUN 20 mg/dL 04/17/24 08:02:00 Creatinine-Blood 0.63 mg/dL 04/17/24 08:02:00 Phosphorus 3.5 mg/dL 04/17/24 08:02:00 Magnesium 2.2 mg/dL 04/17/24 08:02:00 Alkaline Phosphatase 82 units/L 04/17/24 08:02:00 AST (SGOT) 16 units/L 04/17/24 08:02:00 ALT (SGPT) 13 units/L 04/17/24 08:02:00 Bilirubin, Total 0.7 mg/dL 04/17/24 08:02:00 ? * Perla NARVAEZ, Arnie Stroud: PERFORM Event Display: Consultation Note Authored Date: [id number] I personally saw and evaluated the patient. ??I personally reviewed and interpreted the relevant laboratory work and imaging. ??I reviewed the resident/PA/BILLING AND ACCOUNTING STAFF ASSISTANT's note and findings and discussed it withthem. ??I agree with the documented plan of care. ? --- Britney Duncan MD PhD [facility] Vascular Surgery Attending [phone] Note * Zuleyka Blount RN: PERFORM Event Display: Discharge/Transfer Note Hospital Authored Date: [id number] Nursing Discharge Note Entered On: 04/19/2024 16:16 EST Performed On: 04/19/2024 16:15 EST by Zuleyka Blount RN Nursing Discharge Note 2 Discharge Time : 04/19/2024 16:04 EST Discharge Level of Care at Discharge : Home/Assisted/Foster Care Patient Left Unit Via : Wheelchair Patient Accompanied Off Unit with : Responsible adult DC Instructions Provided & Signed by Pt : Yes Patient Understands D/C Instructions : Yes Patient Instructions Discharge Signed : Yes Did Pt have Specialty Bed or Wound Vac : No Jose Alejandro BENAVIDEZ, Zuleyka - 04/19/2024 16:15 EST * Raad Rojas MD, Adriana R: PERFORM, MODIFY, MODIFY Event Display: Discharge/Transfer Note Hospital Authored Date: [id number] Patient: ??DIANA DEL RIO ? Age:??78 Years?Sex:??Female?:??1945?? Patient Information Discharge Location: S1 Primary Care Physician: Mary Crespo MD Admit Date/Time: 04/18/2024 08:05 Discharge Disposition Discharge Disposition: Home: No Services Discharge Diagnosis ?? PMR (polymyalgia rheumatica) (M35.3) History of breast cancer (Z85.3) Fall (W19.XXXA) Anemia (D64.9) _ Discharge Medications Acetaminophen (acetaminophen 500 mg oral tablet)??2 tab(s) 1,000 Milligram By Mouth 3 times a day as needed as needed for pain Anastrozole (anastrozole 1 mg oral tablet)??1 tab(s) 1 Milligram By Mouth Daily Calcium And Vitamin D Combination (calcium-vitamin D 250 mg-200 intl units oral tablet)??1 tab(s) By Mouth Every Sunday, Sunday and Sunday for 14 Days Famotidine (famotidine 40 mg oral tablet)??1 tab(s) 40 Milligram By Mouth Daily Oxycodone (oxyCODONE 5 mg oral tablet)??5 Milligram 1 tablet By Mouth Every 6 hours as needed for??Pain , Severe PredniSONE (predniSONE 50 mg oral tablet)??1 tab(s) 50 Milligram By Mouth Daily for 14 Days ? Medications Started Prednisone 50 mg daily Vitamin D and calcium supplementation PCP Follow-Up/Heads-Up Hospitalization follow-up Follow-up with PCP and rheumatology on outpatient basis Hospital Course 78-year-old female with past medical history of breast cancer presented to the hospital with chief complaint of generalized weakness. ??Patient was diagnosed with polymyalgia rheumatica and was started on steroid therapy in her recent admission. ??After her discharge patient reports she was doing well initially but eventually was noted to havedecline prednisone was somewhat helping her??with her symptoms but not a whole lot. ??Prior to admission she was noted to be so much in pain and was stiff that she ended up sustaininga fall ?? She underwent CT head and cervical spine which was negative for any acute pathology ??She was admitted to the hospital for further evaluation and management. ?? I discussed the case with warehouse operations manager??, given the fact that patient has worsening symptoms while she was on ??prednisone(compliance reported by the patient), has worsening inflammatory markers including ESR and CRP, does have right-sided??jaw claudication??although denies any??visual changes which could have been because of her being on??low-dose steroid and has no??temporal headache. It was recommended to start patient on??high dose steroid??and get surgery consult for??right sidedtemporal artery biopsy??given right jaw claudication??as there was concern for giant cell arteritis. Vascular surgery??performed the right temporal artery biopsy. With steroid administration patient had significant improvement in?her??symptoms supporting the diagnosis. Plan to discharge her today with??prednisone 50 mg daily, has outpatient follow- up with warehouse operations manager. Patient was also evaluated by physical therapy. ?? Today patient is mentating and??ambulating very close to her baseline plan to discharge??to follow-up with PCP and rheumatology??on outpatient basis Discharge plan discussed with patient??and with the team??during the multidisciplinary rounds ? Objective Vital Signs?? Temperature: 97.9 DegF (04/19/24 08:00:00) Temperature Route: Oral (04/19/24 08:00:00) Pulse Rate: 87 bpm (04/19/24 08:00:00) Heart Rate Monitored: 90 bpm (04/18/24 15:00:12) Respiratory Rate: 16 br/min (04/19/24 08:00:00) Systolic Blood Pressure: 128 mm Hg (04/19/24 08:00:00) Diastolic Blood Pressure:??49 mm Hg??Low (04/19/24 08:00:00) Blood pressure sites: Arm, left (04/19/24 08:00:00) Mean Arterial Pressure: 78 mm Hg (04/19/24 01:40:00) Pulse Pressure: 79 mm Hg (04/19/24 08:00:00) Oxygen Saturation: 100 % (04/19/24 08:00:00) Mode of Delivery (Oxygen): Room air (04/19/24 08:00:00) Early Warning Score: 2 (04/19/24 09:12:54) ? Basic ADLs Assistance w bathing/eating/dressing: No (04/17/24) Feeding Assistance: Independent (04/19/24) Hygiene: Assist, Shower (04/18/24) Need for Assist w/ Walk/Transfer: Yes (04/17/24) ? . Physical Exam ? Constitutional: Resting in bed Respiratory: Clear to auscultation. No wheezing, rales or rhonchi. Cardiovascular:??Regular rate and rhythm Gastrointestinal: Abdomen soft, non-tender, non-distended Neurologic:??Awake and alert, able to follow commands Musculoskeletal:?? No edema Psychiatric: Cooperative?? Surgical Procedures Biopsy Temporal Artery 04/18/2024 14:19 Pending Results LARS Screen ordered on 04/18/2024 Add On Lab Order ordered on 04/16/2024 Add On Lab Order ordered on 04/16/2024 Pathology Tissue Request ordered on 04/18/2024 Follow-Up Appointments Added Follow Up ?Time Frame ?Comments Mary Crespo MD?5 to 7 days?Hospitalization follow-up.Continued management of polymyalgia rheumaticaPlease follow-up with pathology results?of temporal art ryan biopsyPlease follow-up with??warehouse operations manager on outpatient basis. Patient Instructions Hospitalization follow-up with PCP.?? Follow-up for pathology results Follow-up with rheumatology. Home Health Face to Face ^HomeHealthFTF Results Discharge Labs BLOOD COUNT & DIFF WBC 12.5 k/mm3 (High)?? 04/19/2024 08:26 RBC 3.56 m/mm3 (Low)?? 04/19/2024 08:26 Hgb 11.9 Gm/dL ()?? 04/19/2024 08:26 Hct 36.1 % ()?? 04/19/2024 08:26 MCV 101.4 femtoliters (High)?? 04/19/2024 08:26 MCH 33.4 pg ()?? 04/19/2024 08:26 MCHC 33.0 Gm/dL ()?? 04/19/2024 08:26 Platelet Count 328 k/mm3 ()?? 04/19/2024 08:26 RDW-SD 47.8 femtoliters (High)?? 04/19/2024 08:26 MPV 8.9 femtoliters (Low)?? 04/19/2024 08:26 Nucleated RBC (Automated) 0.0 #/100 WBC'S ()?? 04/19/2024 08:26 Abs. NRBC 0.0 k/mm3 ()?? 04/19/2024 08:26 Abs. Neut 9.2 k/mm3 (High)?? 04/16/2024 11:47 Abs. Lymph 0.4 k/mm3 (Low)?? 04/16/2024 11:47 Abs. Cass 0.3 k/mm3 (Low)?? 04/16/2024 11:47 Abs. Eo 0.0 k/mm3 ()?? 04/16/2024 11:47 Abs. Baso 0.0 k/mm3 ()?? 04/16/2024 11:47 Neut % 92.8 % (High)?? 04/16/2024 11:47 Lymph % 3.7 % (Low)?? 04/16/2024 11:47 Cass % 2.9 % (Low)?? 04/16/2024 11:47 Eos % 0.0 % ()?? 04/16/2024 11:47 Baso % 0.2 % ()?? 04/16/2024 11:47 Imm Gran 0.4 % ()?? 04/16/2024 11:47 Abs. Imm Gran 0.0 k/mm3 ()?? 04/16/2024 11:47 ?? CARDIAC CK, Total 23 units/L ()?? 04/16/2024 11:47 High Sensitivity Troponin (HSTnT) <6 ng/L ()?? 04/16/2024 11:47 ?? CHEM GENERAL Sodium 137 mmol/L ()?? 04/19/2024 08:26 Potassium 4.3 mmol/L ()?? 04/19/2024 08:26 Chloride 101 mmol/L ()?? 04/19/2024 08:26 Bicarbonate Level 24 mmol/L ()?? 04/19/2024 08:26 Anion Gap 12 mmol/L ()?? 04/19/2024 08:26 Glucose Level 226 mg/dL (High)?? 04/19/2024 08:26 BUN 37 mg/dL (High)?? 04/19/2024 08:26 Creatinine-Blood 0.81 mg/dL ()?? 04/19/2024 08:26 Estimated GFR Creatinine 75 ML/MIN/1.73 M2 ()?? 04/19/2024 08:26 Calcium 9.8 mg/dL ()?? 04/19/2024 08:26 Phosphorus 3.5 mg/dL ()?? 04/17/2024 08:02 Magnesium 2.2 mg/dL ()?? 04/17/2024 08:02 Protein, Total 6.5 Gm/dL ()?? 04/17/2024 08:02 Albumin 3.4 Gm/dL ()?? 04/17/2024 08:02 AG Ratio 1.1 ()?? 04/17/2024 08:02 Alkaline Phosphatase 82 units/L ()?? 04/17/2024 08:02 AST (SGOT) 16 units/L ()?? 04/17/2024 08:02 ALT (SGPT) 13 units/L ()?? 04/17/2024 08:02 Bilirubin, Total 0.7 mg/dL ()?? 04/17/2024 08:02 Vitamin B12 Level 495 pg/mL ()?? 04/16/2024 11:47 Iron Level 19 mcg/dL (Low)?? 04/16/2024 11:47 Iron Binding Capacity, Unsaturated 230 mcg/dL ()?? 04/16/2024 11:47 Iron Binding Capacity, Estimated Total 249 mcg/dL ()?? 04/16/2024 11:47 % Iron Saturation 8 % (Low)?? 04/16/2024 11:47 Ferritin Level 325 ng/mL (High)?? 04/16/2024 11:47 C-Reactive Protein 1.9 mg/dL (High)?? 04/18/2024 07:37 ?? ENDOCRINE/TUMOR MARKER TSH 1.01 uIU/mL ()?? 04/16/2024 11:47 ? HEME OTHER Sed Rate 59 mm/hr (High)?? 04/18/2024 07:37 ? UA/URINALYSIS Appear/Color, Urine LIGHT YELLOW ()?? 04/16/2024 11:32 Clarity CLEAR ()?? 04/16/2024 11:32 Specific Bastian, Urine 1.013 ()?? 04/16/2024 11:32 pH, Urine 7.5 ()?? 04/16/2024 11:32 Albumin, Urine NEGATIVE ()?? 04/16/2024 11:32 Glucose, Urine NEGATIVE ()?? 04/16/2024 11:32 Ketones, Urine NEGATIVE ()?? 04/16/2024 11:32 Bilirubin, Urine NEGATIVE ()?? 04/16/2024 11:32 Hemoglobin, Urine NEGATIVE ()?? 04/16/2024 11:32 Nitrite, Urine NEGATIVE ()?? 04/16/2024 11:32 Leukocyte, Urine NEGATIVE ()?? 04/16/2024 11:32 Urobilinogen 2 mg/dL (Abnormal)?? 04/16/2024 11:32 WBC's, Urine 1 /HPF ()?? 04/16/2024 11:32 RBC's, Urine 2 /HPF ()?? 04/16/2024 11:32 Squamous Epith 1 /HPF ()?? 04/16/2024 11:32 Culture Indication CULTURE NOT INDICATED ()?? 04/16/2024 11:32 ?? URINE OTHER Est Creatinine Clearance 53.92 mL/min ()?? 04/19/2024 09:12 ? VIROLOGY Influenza A PCR NEGATIVE ()?? 04/16/2024 21:45 Influenza B PCR NEGATIVE ()?? 04/16/2024 21:45 RSV PCR NEGATIVE ()?? 04/16/2024 21:45 COVID-19 PCR Specimen Source NASAL ()?? 04/16/2024 21:45 COVID-19 PCR Result NEGATIVE ()?? 04/16/2024 21:45 ? Microbiology ?? COVID-19, RSV, and Flu A/B, Rapid PCR?? Completed?? Source: Nasal Body Site: Nose Collected Dt/Tm: 04/16/2024 10:14 Last Updated Dt/Tm: 04/16/2024 22:51 ? 36??minutes spent on discharge * Deonna Carlos RN: PERFORM, SIGN, VERIFY Event Display: Case Management Discharge Plan Authored Date: [id number] Patient: DIANA DEL RIO Age: 78 years Sex: Female : 1945 Associated Diagnoses: None Author: Deonna Carlos RN Discharge Plan Case Management Discharge Plan : Case Management Discharge Plan Data 04/19/2024 13:22 EST Discharge Level of Care at Discharge Home/Assisted/Foster Care (Modified) Discharge VNA/Hospice/Home Care In Error (In Error) Name of Agency #1 In Error (In Error) Service Categories #1 Physical Therapy, Nursing Home Service Comments #1 You are not home bound. You are agreeable to out patient physical therapy. The physician will write a script. Please follow up with your primary care physician. (Modified) * Deonna Carlos RN: PERFORM, SIGN, VERIFY Event Display: Case Management Discharge Plan Authored Date: [id number] Patient: DIANA DEL RIO Age: 78 years Sex: Female : 1945 Associated Diagnoses: None Author: Deonna Carlos RN Discharge Plan Case Management Discharge Plan : Case Management Discharge Plan Data 04/19/2024 13:22 EST Discharge Level of Care at Discharge Homehealth/VNA Discharge VNA/Hospice/Home Care [facility] [phone] Name of Agency #1 [facility] Service Categories #1 Physical Therapy, Nursing Home Service Comments #1 The above agency will be providing visiting home services. They should contact within 24-48 hours of discharge. If they do not, please contact the company at the above number. * Zuleyka Blount RN: PERFORM Event Display: Patient Education/Instruction Authored Date: [id number] Inpatient Adult Discharge Instructions. [address] [address] Name: DIANA DEL RIO : 1945?? Visit: 04/18/2024 08:05?? Current Date: 04/19/2024 15:26 ?? Account: [id number]?? Inpatient Adult Discharge Instructions We would like to thank you for allowing us to assist you with your healthcare needs. The following includes patient education materials and information regarding your injury/illness. Our entire staffstrives to provide an excellent experience for our patients and their families. PLEASE ENSURE YOU FOLLOW-UP PER THE INSTRUCTIONS BELOW! ?? YOUR OPINION IS IMPORTANT TO US! Please complete the survey you may receive by mail or email. Your feedback will be used to make improvements to the healthcare experiences of our patients and their families. Surveys are administered by [employer] ?? If further treatment with your primary care physician or another doctor is recommended, it is important for you to keep the appointment. Call your primary care physician or return to the Emergency Department immediately if your condition worsens, fails to improve, or new symptoms develop. If you need to find a doctor, you can call [facility] Webroot Link for a referral at [phone] or toll free at [phone]) or log in to [email or web address].. ?? [facility], in keeping with [facility] guidance, no longer requires face masks for staff, patientsor visitors in most situations. Similiar to time spent indoors at other locations, there is the chance that you were exposed to repiratory viruses during your time with us (such as flu or COVID-19). If you develop symptoms concerning for a viral respiratory infection, please seek testing (and treatment if indicated) from your medical provider or home test kit. ?? You can view and manage your care through the patient portal or by using a health care ryan of your choosing. [facility] is a website that allows you to securely view your medical information including your hospital discharge summary, office visit summaries, medications and follow-up visits. You can also request appointments, renew medications, and request access to your medical information using a health care ryan of your choosing, or just ask a question. You can enroll at [email or web address] or register during your next office visit. You have been discharged from [facility], Patient Care Unit: S1??. If you have any questions regarding these instructions, including results of studies pending, afteryou leave, please call us and we will be happy to assist you 25/09. [facility] Your Care Team Attending Physician Adriana Guillermo MD?? Consulting Providers Adriana Guillermo MD?? Discharging Providers Adriana Guillermo MD Reason for Your Visit fell at 2am hit head no LOC no thinners. stated she was dizzy after. was able to get herself up standing but increasingly more weak?? Your Diagnosis Anemia Fall General medical History of breast cancer PMR (polymyalgia rheumatica) Tests Performed Below is a partial list of the tests performed during your hospitalization. You may have had other tests and procedures not included in this list. Please discuss all test results with your provider. Basic Metabolic Panel C-REACTIVE PROTEIN CBC CBC w/ Differential CK,TOTAL ONLY Comprehensive Metabolic Panel COVID-19, RSV, and Flu A/B, Rapid PCR CRP ESR FERRITIN High??Sensitivity??Troponin T IRON & TIBC Mg Level Phosphorus Level SEDIMENTATION RATE,AUTOMATED TSH Urinalysis Complete/Reflex Culture VITAMIN B12 CT Cervical Spine W/O Contrast CT Head/Brain W/O Contrast LARS Screen?? Add On Lab Order?? Basic Metabolic Panel?? C Reactive Protein (CRP)?? CBC?? CBC w/ Differential?? COVID-19, RSV, and Flu A/B, Rapid PCR?? CPK Total Only (CK,TOTAL ONLY)?? CT Cervical Spine W/O Contrast?? CT Head/Brain W/O Contrast?? Complete Urinalysis/Reflex Culture (Urinalysis Complete/Reflex Culture)?? Comprehensive Metabolic Panel?? Ferritin?? High??Sensitivity??Troponin T?? Iron + Iron Binding Capacity (IRON & TIBC)?? Magnesium Level (Mg Level)?? Pathology Tissue Request ()?? Phosphorus Level?? Sedimentation Rate (ESR)?? TSH?? Vitamin B12 Level (VITAMIN B12)?? Primary Care Provider Mary Crespo MD? Advance Directive Health Care Proxy on File No Patient refuses to discuss Discharge Vitals Temperature: 98 DegF Height: 167 cm Pulse Rate: 72 bpm Weight: 61 kg Respiratory Rate: 16 br/min Body Mass Index: 21.87 kg/m2 Systolic Blood Pressure: 125 mm Hg Body surface area: 1.68 Diastolic Blood Pressure:??50 mm Hg??Low ?? Oxygen Saturation: 98 % ?? Studies Pending All studies ordered during this hospital stay have been completed unless listed below. Please discuss all pending results with your provider listed above in these instructions. ?? LARS Screen?? Add On Lab Order?? Pathology Tissue Request ()?? What to do next Instructions From Your Doctor Hospitalization follow-up with PCP.?? Follow-up for pathology results Follow-up with rheumatology. ?? Orders? 04/19/24 15:20:00 EST?? Prescriptions??, ??04/19/24 15:20:00 EST?? You Need to Schedule the Following Appointments Follow Up with??Mary Crespo MD When:??Within 5 to 7 days Why: Hospitalization follow-up. Continued management of polymyalgia rheumatica Please follow-up with pathology results?of temporal artery biopsy Please follow-up with??warehouse operations manager on outpatient basis. Where: [address] [place] [address]- Discharge Medications DIANA DEL RIO :1945 Visit Date:04/18/2024 Medications: Please continue your medications until treatment is completed or stopped by your provider. Medications not listed below should be discontinued. Discuss any questions related to medications with your provider. What How Much When Instructions Next Dose New Calcium And Vitamin D Combination (calcium-vitamin D 250 mg-200 intl units oral tablet) 1 tab(s) Oral Sunday, Sunday and Sunday Duration: 14 Days Pickup at [facility] 3 04/21 9am Changed PredniSONE (predniSONE 50 mg oral tablet) 1 tab(s) Oral Daily Duration: 14 Days Pickup at [facility] 3 04/20 9am Unchanged Acetaminophen (acetaminophen 500 mg oral tablet) 2 tab(s) Oral 3 times a day as needed for as needed for pain last dose was given at 9:48am Unchanged Anastrozole (anastrozole 1 mg oral tablet) 1 tab(s) Oral Daily 04/20 9am Unchanged Famotidine (famotidine 40 mg oral tablet) 1 tab(s) Oral Daily 04/20 9am Unchanged Oxycodone (oxyCODONE 5 mg oral tablet) 1 tab(s) Oral Every 6 hours as needed for Pain , Severe as instructed Pharmacy Information [facility] 3: [address] [place], [place] [id number] [phone] Prescription Given During Visit Calcium And Vitamin D Combination (calcium-vitamin D 250 mg-200 intl units oral tablet) - 1 tablet,By Mouth, Every Sunday, Sunday and Sunday, # 6 tablet, 0 Refills, [facility] [address] [place] [phone]?? PredniSONE (predniSONE 50 mg oral tablet) - 1 tablet = 50 mg, By Mouth, Daily, # 14 tablet, 0 Refills, [facility] [address] [place] [phone]?? Laboratory Results Below is a partial list of the most recent Laboratory test results done prior to this discharge. You may have had other tests and procedures not included in this list. Please discuss all test resultswith your provider. Est Creatinine Clearance - 53.92 mL/min (04/19/2024) Basic Metabolic Panel (04/19/2024) ???Sodium - 137 mmol/L???Potassium - 4.3 mmol/L???Chloride - 101 mmol/L???Bicarbonate Level - 24 mmol/L???Anion Gap - 12 mmol/L???Glucose Level - 226 mg/dL???BUN - 37 mg/dL???Creatinine-Blood - 0.81 mg/dL???Estimated GFR Creatinine - 75 ML/MIN/1.73 M2???Calcium - 9.8 mg/dL C-REACTIVE PROTEIN (04/16/2024) ???C-Reactive Protein - 3.2 mg/dL CBC (04/19/2024) ???WBC - 12.5 k/mm3???RBC - 3.56 m/mm3???Hgb - 11.9 Gm/dL???Hct - 36.1 %???MCV - 101.4 femtoliters???MCH - 33.4 pg???MCHC - 33.0 Gm/dL???Platelet Count - 328 k/mm3???RDW-SD - 47.8 femtoliters???MPV -8.9 femtoliters???Nucleated RBC (Automated) - 0.0 #/100 WBC'S???Abs. NRBC - 0.0 k/mm3 CBC w/ Differential (04/16/2024) ???WBC - 10.0 k/mm3???RBC - 3.35 m/mm3???Hgb - 11.3 Gm/dL???Hct - 33.9 %???MCV - 101.2 femtoliters???MCH - 33.7 pg???MCHC - 33.3 Gm/dL???Platelet Count - 235 k/mm3???RDW-SD - 48.4 femtoliters???MPV -9.0 femtoliters???Nucleated RBC (Automated) - 0.0 #/100 WBC'S???Abs. NRBC - 0.0 k/mm3???Abs. Neut -9.2 k/mm3???Abs. Lymph - 0.4 k/mm3???Abs. Cass - 0.3 k/mm3???Abs. Eo - 0.0 k/mm3???Abs. Baso - 0.0 k/mm3???Neut % - 92.8 %???Lymph % - 3.7 %???Cass % - 2.9 %???Eos % - 0.0 %???Baso % - 0.2 %???Imm Gran - 0.4 %???Abs. Imm Gran - 0.0 k/mm3 CK,TOTAL ONLY (04/16/2024) ???CK, Total - 23 units/L Comprehensive Metabolic Panel (04/17/2024) ???Sodium - 142 mmol/L???Potassium - 4.8 mmol/L???Chloride - 104 mmol/L???Bicarbonate Level - 26 mmol/L???Anion Gap - 12 mmol/L???Glucose Level - 99 mg/dL???BUN - 20 mg/dL???Creatinine-Blood - 0.63 mg/dL???Estimated GFR Creatinine - 91 ML/MIN/1.73 M2???Calcium - 9.4 mg/dL???Protein, Total - 6.5 Gm/d L???Albumin - 3.4 Gm/dL???AG Ratio - 1.1???Alkaline Phosphatase - 82 units/L???AST (SGOT) - 16 units/L???ALT (SGPT) - 13 units/L???Bilirubin, Total - 0.7 mg/dL COVID-19, RSV, and Flu A/B, Rapid PCR (04/16/2024) ???Influenza A PCR - NEGATIVE???Influenza B PCR - NEGATIVE???RSV PCR - NEGATIVE???COVID-19 PCR Specimen Source - NASAL???COVID-19 PCR Result - NEGATIVE CRP (04/18/2024) ???C-Reactive Protein - 1.9 mg/dL ESR (04/18/2024) ???Sed Rate - 59 mm/hr FERRITIN (04/16/2024) ???Ferritin Level - 325 ng/mL High??Sensitivity??Troponin T (04/16/2024) ? ?High Sensitivity Troponin (HSTnT) - <6 ng/L IRON & TIBC (04/16/2024) ???Iron Level - 19 mcg/dL???Iron Binding Capacity, Unsaturated - 230 mcg/dL???Iron Binding Capacity, Estimated Total - 249 mcg/dL???% Iron Saturation - 8 % Mg Level (04/17/2024) ???Magnesium - 2.2 mg/dL Phosphorus Level (04/17/2024) ???Phosphorus - 3.5 mg/dL SEDIMENTATION RATE,AUTOMATED (04/16/2024) ???Sed Rate - 58 mm/hr TSH (04/16/2024) ???TSH - 1.01 uIU/mL Urinalysis Complete/Reflex Culture (04/16/2024) ???Appear/Color, Urine - LIGHT YELLOW???Clarity - CLEAR???Specific Bastian, Urine - 1.013???pH, Urine - 7.5???Albumin, Urine - NEGATIVE???Glucose, Urine - NEGATIVE???Ketones, Urine - NEGATIVE???Bilirubin, Urine - NEGATIVE???Hemoglobin, Urine - NEGATIVE???Nitrite, Urine - NEGATIVE???Leukocyte, Urine- NEGATIVE???Urobilinogen - 2 mg/dL???WBC's, Urine - 1 /HPF???RBC's, Urine - 2 /HPF???Squamous Epith - 1 /HPF???Culture Indication - CULTURE NOT INDICATED VITAMIN B12 (04/16/2024) ???Vitamin B12 Level - 495 pg/mL You will be contacted within 72 hours with your results. Allergies (NKA means No Known Allergies) Apples??(Eggs (edible)) Egg Allergy Problems No qualifying data available Education Materials Below is the list of Educational Leaflet Providered with your Discharge Instructions. Valuables and Belongings I fully understand and agree that [facility] accepts no responsibility for all my personal property including clothing, toilet articles, radios, jewelry, dentures, hearing aids, rings, money, or any other property that is in my possession or is brought to me after admission. I understand certain valuables may be placed in a hospital safe for a short period of time. I understand that the hospital is not liable for loss or damage due to accident, fire, or other natural occurrence while said property is in the safe. I accept full responsibility for any personal property that I keep with me, and will not hold the hospital responsible in case of loss or disappearance. I acknowledge that i have been encouraged to send valuables and belongings home. ?? Date for Pt to Sign Valuables/Belongings: 04/18/24 13:21:00 ?? Valuables & Belongings ?? Clothes Electronic devices Jewelry Monetary Items Personal devices Miscellaneous Medications (Valuables) Valuables at Bedside Pants, Shirt, Shoes Other: ipad with case and ?? white chager ?? Purse ? Valuables Sent Home ? Valuables Sent to Security ? Valuables Sent to Locker ? Other Discharge Information ? Case Management Discharge Plan?? Discharge Plan?? Discharge Agency Information?? Discharge Level of Care at Discharge: Home/Assisted/Foster Care Service Categories #1: Physical Therapy, Nursing Home ?? Service Comments #1: You are not home bound. You are agreeable to out patient physical therapy. Thephysician will write a script. Please follow up with your primary care physician. ?? Pulmonary Rehab Status?? Pulmonary Rehab Discharge Status?? Respiratory Rate: 16 br/min ? Common Emergency Awareness Tips IS IT A STROKE? Act FAST and Check for these signs: FACE Does the face look uneven? ARM Does one arm drift down? SPEECH Does their speech sound strange? TIME Call at any sign of stroke ?? Heart Attack Signs Chest discomfort: Most heart attacks involve discomfort in the center of the chest and lasts more than a few minutes, or goes away and comes back. It can feel like uncomfortable pressure, squeezing, fullness or pain. Discomfort in upper body: Symptoms can include pain or discomfort in one or both arms, back, neck, jaw or stomach. Shortness of breath: With or without discomfort. Other signs: Breaking out in a cold sweat, nausea, or lightheaded. Remember, MINUTES DO MATTER. If you experience any of these heart attack warning signs, call to get immediate medical attention! ?? Smoking can increase your chances of developing chronic health problems and can cause harmful effects to other family members in your house. If you smoke, you are strongly encouraged to quit. Please call [facility] Link at [phone] or [phone] ([phone]) or log in to [email or web address] for referrals to smoking cessation programs. ?? 235 Suicide & Crisis Lifeline is available 25/09 if you or someone you know needs to find a reason to keep living. By calling 629 you'll be connected to a skilled, trained counselor at a crisis center in your area. INPATIENT DISCHARGE INSTRUCTIONS SIGNATURE PAGE DIANA DEL RIO Location:[facility] Registration Date and Time:04/18/2024 08:05 EST Primary Care Physician: Mary Crespo MD, Attending Physician: Raad Rojas MD, Adriana Lea, DIANA WILSON, have received the above patient education materials/instructions and have verbalized understanding. If ambulance or transport services are being used I further acknowledge being given a choice of service. ?? If you need to contact me, please call me at this number: . Patient/Settlement Worker Name: Patient/Settlement Worker Signature: Relationship to Patient: Witness Name/Signature: Date: Patient Care team information Care Team Personnel Name: Dena Phan Position: S RN Member Role: Primary Care Nurse Name: Mary Crespo MD Position: S Physician - Primary Care Member Role: PCP Address: [address] Telecom: Name: Zuleyka Blount RN Position: S RN Member Role: Primary Care Nurse Name: Chelsie Tom Position: S RN Member Role: Primary Care Nurse Name: William Zuniga RN Position: [facility] RN Member Role: Primary Care Nurse
--- OUTSIDE RECORDS SUMMARY | 2024-05-08 11:42 | XMS_ITS | Clinical Summary ---
Author Organization [facility] Address [address] [place] [address] Phone Care Team Providers Care Senior Risk Analyst Name Role Phone Mary Crespo MD Primary Care Provider [phone] Allergies No known active allergies Medications biotin 1,000 mcg tablet,chewable Chew by mouth. Active cholecalciferol (VITAMIN D-3) 25 mcg (1,000 unit) tablet Take 1 tablet (25 mcg total) by mouth daily. Active UNABLE TO FIND Apoaequorin (PREVAGEN PO) Active UNABLE TO FIND Natural Products (GINKOGIN PO) Active CALCIUM-MAGNESI UM-ZINC ORAL Take by mouth. Ac tive OMEGA-3 FATTY ACIDS ORAL Take by mouth. Acti ve multivitamin with minerals (CENTRUM/CERTAV IT) 18-400 mg-mcg tablet tablet Take by mouth. Activ e turmeric root extract 500 mg tablet Take by mouth. Activ e anastrozole (ARIMIDEX) 1 mg TAKE 1 TABLET BY MOUTH EVERY DAY 90 tablet 3 5 Active Family History Medical History Relation Name Comments Cancer Mother Melonoma Relation Name Status Comments Mother Social History Tobacco Use Types Packs/Day Years Used Date Smoking Tobacco: Never Smokeless Tobacco: Never Alcohol Use Standard Drinks/Week Comments Yes 0 (1 standard drink = 0.6 oz pur e alcohol) Comments Unknown Sex and Gender Information Value Date Recorded Sex Assigned at Not on file Legal Sex Female 12:30 AM EST Gender Identity Not on file Sexual Orientation Not on file Obstetrics History Last Filed Vital Signs Vital Sign Reading Time Taken Comments Blood Pressure 113/68 01/09/2024 1:43 PM EST Pulse 81 01/09/2024 1:43 PM EST Temperature 36.6 ??C (97.8 ??F) 01/09/2024 1:43 PM ES T Respiratory Rate - - Oxygen Saturation - - Inhaled Oxygen Concentration - - Weight 63 kg (139 lb) 01/09/2024 1:43 PM EST Height 167.6 cm (5' 6 ) 01/02/2023 9:34 AM EDT Body Mass Index 22.44 01/02/2023 9:34 AM EDT Plan of Treatment Upcoming Encounters Date Type Department Care Team (Late st Contact Info) Description 05/12/2024 1:00 PM EDT Office Visit [facility] Hematology Oncology [address] [place] [phone] Ivone Chavez MD [address] [place] [address] 07/09/2024 1:30 PM EDT Office Visit Breast Care [facility] [address] [facility] [address] [place] [phone] Kristin Ricketts MD [address] [facility] [address] [place] [address] 07/18/2024 9:45 AM EDT Appointment [facility] [address] [place] [phone] Health Maintenance Due Date Last Done Comments COVID-19 Vaccine (#1) 1950 DTaP,Tdap,and Td Vaccines (1 - Tdap) 1965 Zoster Vaccines (1 of 2) 1965 Pneumococcal Vaccine: 50+ Years (2 of 2 - PCV) 05/28/2018 05/28/2017 RSV Immunization Patients 60 + Years Old (1 - 1-dose 75+ series) 2021 Cholesterol Screening (Lipid Panel) 02/12/2022 Depression Screening 02/12/2022 Falls Risk Assessment 02/12/2022 Hepatitis C Screening 02/12/2022 Social Influencers of Health Screening 02/12/2022 Medicare Annual Wellness Visit 06/16/2022 06/16/2021 Influenza Vaccine (#1) 2023 12/09/2019 Osteoporosis Screening (Bone Density Screening) 01/16/2033 01/16/2023, 10/23/2018 HIB Vaccines Aged Out No longer eligi ble based on patient's age to complete this topic HPV Vaccines Aged Out No longer eligi ble based on patient's age to complete this topic Hepatitis A Vaccines Aged Out No long er eligible based on patient's age to complete this topic Hepatitis B Vaccines Aged Out No long er eligible based on patient's age to complete this topic IPV Vaccines Aged Out No longer eligi ble based on patient's age to complete this topic MMR Vaccines Aged Out No longer eligi ble based on patient's age to complete this topic Meningococcal ACWY Vaccine Aged Out N o longer eligible based on patient's age to complete this topic Meningococcal B Vacine Aged Out No lo nger eligible based on patient's age to complete this topic RSV Immunization Patients Under 20 months Aged Out No longer eligible b ased on patient's age to complete this topic Varicella Vaccines Aged Out No longer eligible based on patient's age to complete this topic Procedures Procedure Name Priority Date/Time Associated Diagnosis Comments [facility] DEXA AXIAL SKELETON Routine 01/16/2023 11:12 AM EST Other specified disorders of bone density and structure, multiple sites from Last 3 Months or Most Recently Relevant to Health Maintenance Results * [facility] DEXA AXIAL SKELETON (01/16/2023 11:12 AM EST) Anatomical Region Laterality Modality Mammography 01/15/2023 1:42 PM EST Narrative 01/16/2023 11:12 AM EST [facility] Diagnostic Imaging Department [address] [place], [place] [id number] Patient: ??ISATU DEL RIO ?/Age/Sex: 1945 - 77 - F Unit#: ??[id number] ? Location/Status: ??SPDIMAM/REG CLI ? Mnemonic/Ordering Site: ??MAMDEXAAX/SPMAM Ordering Physician: ??IVONE CHAVEZ MD Richy Dexa Axial Skeleton - 01/15/23 - 1419 Report Status:Signed HISTORY: ??The patient is a 77-year-old postmenopausal female with clinical concern for metabolic bone disease. FINDINGS: ??Dual energy x-ray absorptiometry of the lumbar spine and femurs is performed. The mean bone mineral density at L1-L4 is 1.031 gm/cm2 which is 87% of that of young normals and 110% of that of age matched controls. This yields a T-score of -1.2 and a Z-score of 0.8 which is diagnostic of osteopenia. The mean bone mineral density of the femurs bilaterally is 0.816 gm/cm2 which is 81% of that of young normals and 108% of that of age matched controls. ??This yields a T-score of -1.5 and a Z-score of 0.5 which is diagnostic of osteopenia. IMPRESSION: 1. Osteopenia. ??There has been a decrease of 4.9% in bone mineral density in the lumbar spine since the prior examination of 10/23/2018. ??There has been a decrease of 9.6% in bone mineral density in the right femur and a decrease of 6.8% in bone mineral density in the left femur. 2. FRAX analysis yields a 10-year probability of major osteoporotic fracture of 16.5% and a 10-year probability of hip fracture of 3.3%. Code 79449 Dictating Physician: ??LORAINE FINE MD Electronically Signed by: ??LORAINE FINE MD Dic Date/Time: ??01/16/23 1111 Sign date/Time: ??01/16/23 1112 Procedure Note Loraine Fine MD - 04/10/2023 [facility] Diagnostic Imaging Department [address] [place] [id number] Patient: LIANNA DEL RIOSANTI Pardo./Age/Sex: 1945 - 77 - F Unit#: [id number] Location/Status: SPDIMAM/REG CLI Mnemonic/[facility]ing [facility] Ordering Physician: IVONE CHAVEZ MD Richy Dexa Axial Skeleton - 01/15/231418 Report Status:Signed HISTORY: The patient is a 77-year-old postmenopausal female withclinical concern for metabolic bone disease. FINDINGS: Dual energy x-ray absorptiometry of the lumbar spine and femursis performed. The mean bone mineral density at L1-L4 is 1.031 gm/cm2 which is87% of that of young normals and 110% of that of age matched controls. Thisyields a T-score of -1.2 and a Z-score of 0.8 which is diagnostic of osteopenia. The mean bone mineral density of the femurs bilaterally is 0.816 gm/bq8mebiv is 81% of that of young normals and 108% of that of age matched controls.This yields a T-score of -1.5 and a Z-score of 0.5 which is diagnostic ofosteopenia. IMPRESSION: 1. Osteopenia. There has been a decrease of 4.9% in bone mineral densityin the lumbar spine since the prior examination of 10/23/2018. There has candis decrease of 9.6% in bone mineral density in the right femur and a decreaseof 6.8% in bone mineral density in the left femur. 2. FRAX analysis yields a 10-year probability of major osteoporoticfracture of 16.5% and a 10-year probability of hip fracture of 3.3%. Code 50543 Dictating Physician: LORAINE FINE MD Electronically Signed by: LORAINE FINE MD Dic Date/Time: 01/16/23 1111 Sign date/Time: 01/16/23 1112 Ivone Chavez MD IMG BI PROCEDURES Final Resu lt from Last 3 Months or Most Recently Relevant to Health Maintenance Insurance MEDICARE [facility] Advance Directives Documents on File Type Date Recorded Patient Medicine And Health Service Manager Expl anation Health Care Decision (hx) 08/31/2022 HE ALTH CARE PROXY Health Care Decision (hx) 08/31/2022 HE ALTH CARE PROXY Health Care Decision (hx) 08/31/2022 HE ALTH CARE PROXY Health Care Decision (hx) 08/31/2022 HE ALTH CARE PROXY Health Care Decision (hx) 08/31/2022 HE ALTH CARE PROXY Health Care Decision (hx) 08/31/2022 HE ALTH CARE PROXY Health Care Decision (hx) 08/31/2022 HE ALTH CARE PROXY Health Care Decision (hx) 08/31/2022 HE ALTH CARE PROXY Health Care Decision (hx) 08/31/2022 HE ALTH CARE PROXY Health Care Decision (hx) 08/31/2022 HE ALTH CARE PROXY Health Care Decision (hx) 08/31/2022 HE ALTH CARE PROXY Health Care Decision (hx) 08/31/2022 HE ALTH CARE PROXY Health Care Decision (hx) 08/31/2022 HE ALTH CARE PROXY Health Care Decision (hx) 08/31/2022 HE ALTH CARE PROXY Health Care Decision (hx) 08/31/2022 HE ALTH CARE PROXY Health Care Decision (hx) 08/31/2022 HE ALTH CARE PROXY Care Teams Senior Risk Analyst Relationship Specialty Start Date End Date Mary Crespo MD [address] [place] [address] PCP - General Internal Medicine 08/04/21
[2024-05-08 13:32] LABS: MANUAL DIFF FLAG NO
[2024-05-08 13:35] LABS: Basophils Percent Auto 0.3 % (0-2); Eosinophils Absolute Auto 0.1 X10*3/uL (0.0-0.4); Eosinophils Percent Auto 2.2 % (0-4); Hematocrit 38.3 % (37.0-47.0); Hemoglobin 12.6 g/dl (12.0-16.0); Imm Gran Abs Auto 0.03 X10*3/uL (0.00-0.03); Imm Gran Pct Auto 0.5 % (0.0-0.4); Lymphocytes Absolute Auto 0.9 X10*3/uL (1.2-4.9); Lymphocytes Percent Auto 13.8 % (20-40); Mean Corpuscular HGB Conc 32.9 g/dl (31.0-35.0); Mean Corpuscular Hemoglobin 34.1 pg (27.0-33.0); Mean Corpuscular Volume 103.8 fL (80.0-98.0); Mean Platelet Volume 9.2 fL (9.4-12.3); Monocytes Absolute Auto 0.5 X10*3/uL (0.1-1.2); Monocytes Percent Auto 8.4 % (2-11); Neutrophils Absolute Auto 4.8 x10*3/uL (2.0-8.3); Neutrophils Percent Auto 74.8 % (45-73); Platelet Count 188 X10*3/uL (160-400); Red Blood Count 3.69 X10*6/uL (4.20-5.50); Red Cell Distribution Width 13.9 % (11.0-16.0); White Blood Count 6.4 X10*3/uL (4.8-10.8)
[2024-05-08 14:10] LABS: Alanine Aminotransferase 22 U/L (0-31); Albumin Level 3.7 g/dL (3.5-5.0); Alkaline Phosphatase 65 U/L (39-117); Anion Gap 12 (12-20); Aspartate Amino Transferase 20 U/L (5-31); Bilirubin Total 0.9 mg/dL (0.0-1.0); Blood Urea Nitrogen 17 mg/dL (9-16); C Reactive Protein 0.32 mg/dL (< or = 0.50); Calcium 9.4 mg/dL (8.4-10.2); Carbon Dioxide 28 mmol/L (22-29); Chloride 107 mmol/L (96-108); Estimated Glomerular Filt Rate > 60; Glucose Random 81 mg/dL (60-115); Potassium 4.3 mmol/L (3.3-5.1); Sodium 143 mmol/L (135-145); Total Protein 6.6 g/dL (6.5-8.0)
[2024-05-08 14:23] LABS: Erythrocyte Sedimentation Rate 17 MM/HR (0-20)
== END 2024-05-08 10:04 | disposition home or self-care (01) ==
LOC: HO.HMGCLDS 10:03
PROVIDERS: PCP Internal Medicine; Visit Provider Internal Medicine
DX: M35.3 Polymyalgia rheumatica (principal)
CPT/HCPCS: 36415; 80053; 85025; 85652; 86140

== ENCOUNTER 2024-05-09 13:20 | Outpatient (AMB) | payer MEDICARE, OTHER, SELFPAY ==
[2024-05-09 13:25] VITALS: BP 112/66; PULSE 77; RESP 18; TEMP 36.6; O2SAT 99; BMI 22.3
--- NOTE | 2024-05-09 13:25 | A.OFFPC_ITS ---
Vital Signs 05/09/24 13:25 Height 5 ft 6 in Weight 138 lb BMI 22.3 BP 112/66 Blood Pressure Location Lt brachial Position Sitting Respiration 18 Pulse 77 Pulse Source Pulse Oximeter Temp 97.9 F Temp Source Oral Pulse Oximetry (%) 99 Oxygen Delivery Method Room Air Intake Visit Reasons: 6 week follow up Intake Note: Pt is hre today for 6 weeks follow up visit. Allergies Egg/Pro Allergy (Unknown, Uncoded 05/09/24 13:25) sick to her stomach Medication List - Last Reconciled 05/09/24 by Mary Crespo MD anastrozole 1 mg PO DAILY biotin PO calcium acetate PO dextrin (Fiber (dextrin)) PO docusate sodium (Stool Softener) PO famotidine mg PO famotidine (Pepcid) 40 mg PO DAILY ginkgo biloba PO multivitamin (Daily Multi-Vitamin) PO prednisone mg PO DAILY turmeric PO Tobacco use date assessed: 05/09/24 Dental Screening Dental Screen Date: 03/28/24 HPI 6 week follow up HPI Details Patient presents for PMR follow-up. She has been taking prednisone 20 mg and is established with travertine installer. She has been tolerating medication well has been taking Pepcid for GI prophylaxis and was started on alendronate by travertine installer. [facility] Medical History (Updated 05/09/24 @ 16:28 by Mary Crespo MD) Osteopenia Ductal carcinoma in situ (DCIS) of left breast Breast mass, left Toenail fungus Hearing loss Mammogram normal Abnormal colonoscopy Insomnia Hyperlipidemia Annual physical exam Vitamin D deficiency Surgical History No pertinent past surgical history Family History Father No problems noted. Mother Diabetes Melanoma Uterine cancer Brother Substance use disorder Social History Housing: House Alcohol intake: current Alcohol intake frequency: a few times a week Patient Tobacco Use Status: Never used Tobacco e-Cigarette/Vaping Use: Never Used service: No Current occupational status: retired Cognitive needs: No Hearing needs: Yes Vision needs: Yes Questionnaire Thrive Questionnaire Date Thrive assessed: 03/28/24 I am a: Patient What is your living situation today?: I have a steady place to live Within the past 12 months, did the food you bought not last and you didn't have the money to get more?: Never true Within the past 12 months, did you worry whether your food would run out before you got money to buy more?: Never true Do you have trouble paying for medicines?: No Do you have trouble getting transportation to medical appointments?: No Do you have trouble paying your heating and electricity bill?: No Do you have trouble taking care of your child, family member or friend?: No Do you have trouble with day-to-day activities such as bathing, preparing meals, shopping, managing finances, etc.?: No Are you currently unemployed and looking for a job?: I choose not to answer this question Are you interested in more education?: No Please select the resources that you would like help with: None Currently or been in a relationship where the following occur: No concerns reported THRIVE Score: 0 TRINH-7 AMB Questionnaire TRINH-7 Date TRINH - 7 assessed: 03/28/24 Source: Developed by Drs. Sven Pitt, Ailyn Chatterjee, Carl Calvo and colleagues, with an educational jonny from [employer]. Review of Systems Const All systems reviewed & are unremarkable except as noted in HPI and below ENT Reports no additional complaints Card Reports no additional complaints Resp Reports no additional complaints GI Reports no additional complaints Reports no additional complaints Physical exam (Primary Care) Vital Signs: Last Vital Signs Temp 97.9 F 05/09/24 13:25 Pulse 77 05/09/24 13:25 Resp 18 05/09/24 13:25 BP 112/66 05/09/24 13:25 Pulse Ox 99 05/09/24 13:25 Oxygen Delivery Method Room Air 05/09/24 13:25 BMI result Body Mass Index 22.3 Tobacco/Smoking Status: Tobacco use Status Tobacco use date assessed 05/09/24 05/09/24 13:26 Patient Tobacco Use Status Never used Tobacco 05/09/24 13:26 e-Cigarette/Vaping Use Never Used 05/09/24 13:26 Thrive Assessment: Date of Thrive Assessment Date Thrive assessed 03/28/24 05/09/24 13:26 Currently or been in a relationship where the following occur: No concerns reported Const General: no acute distress HENMT Head: Yes normal to inspection Neck Neck: Yes supple Resp Effort & Inspection: normal respiratory effort Auscultation: clear to auscultation bilaterally Cardio Rhythm: regular rhythm Heart sounds: S1 normal heart sound present and S2 normal heart sound present Coding Level of Care Code Est Pt Level 3 (30016) Diagnoses PMR (polymyalgia rheumatica) M35.3 Osteopenia M85.80 Vitamin D deficiency E55.9 Assessment & Plan Assessment & Plan (1) PMR (polymyalgia rheumatica): Comment: f/u Dr. Sheppard Code(s): M35.3 - Polymyalgia rheumatica Category: Medical Plan: Continue prednisone follow-up with travertine installer. CRP level was 0.32 (2) Osteopenia: Comment: DEXA [facility] 10/2018 osteopenia, T score -1.7 femur, DEXA [facility] 01/2023, started on alendronate 03/2024 by rheumatology Code(s): M85.80 - Other specified disorders of bone density and structure, unspecified site Category: Medical Plan: Continue alendronate vitamin-D and weight-bearing exercises (3) Vitamin D deficiency: Code(s): E55.9 - Vitamin D deficiency, unspecified Category: Medical Plan: Continue vitamin D Orders: Orders Comprehensive [place]. Panel Fast 6 Months E55.9 - Vitamin D deficiency, unspecified, E78.5 - Hyperlipidemia, unspecified, M85.80 - Other specified disorders of bone density and structure, unspecified site, Z00.00 - Encounter for general adult medical examination without abnormal findings Complete Blood Count Auto Diff 6 Months E55.9 - Vitamin D deficiency, unspecified, E78.5 - Hyperlipidemia, unspecified, M85.80 - Other specified disorders of bone density and structure, unspecified site, Z00.00 - Encounter for general adult medical examination without abnormal findings TSH reflex Free T4 6 Months E55.9 - Vitamin D deficiency, unspecified, E78.5 - Hyperlipidemia, unspecified, M85.80 - Other specified disorders of bone density and structure, unspecified site, Z00.00 - Encounter for general adult medical examination without abnormal findings Vitamin D 25-OH Total 6 Months E55.9 - Vitamin D deficiency, unspecified, E78.5 - Hyperlipidemia, unspecified, M85.80 - Other specified disorders of bone density and structure, unspecified site, Z00.00 - Encounter for general adult medical examination without abnormal findings Lipid Panel 6 Months E55.9 - Vitamin D deficiency, unspecified, E78.5 - Hyperlipidemia, unspecified, M85.80 - Other specified disorders of bone density and structure, unspecified site, Z00.00 - Encounter for general adult medical examination without abnormal findings
--- OUTSIDE RECORDS SUMMARY | 2024-05-09 14:57 | XMS_ITS | Clinical Summary ---
Author Organization [facility] Address [address] [place] [address] Phone Care Team Providers Care Poultry Service Technician Name Role Phone Mary Crespo MD Primary Care Provider [phone] Allergies No known active allergies Medications biotin [...] Care Team (Late st Contact Info) Description 05/13/2024 1:15 PM EDT Office Visit [facility] Hematology Oncology [address] [place] [phone] Ivone Chavez MD [address] [place] [address] 07/09/2024 1:30 PM EDT Office Visit [facility] [address] [facility] [address] [place] [phone] Kristin Ricketts MD [address] [facility] [address] [place] [address] 07/18/2024 9:45 AM EDT Appointment [facility] [address] [place] [phone] Health Maintenance Due Date Last Done Comments [...] Procedure Name Priority Date/Time Associated Diagnosis Comments [facility] DEXA AXIAL SKELETON Routine 01/16/2023 11:12 AM EST Other specified disorders of bone density and structure, multiple sites from Last 3 Months or Most Recently Relevant to Health Maintenance Results * [facility] DEXA AXIAL SKELETON (01/16/2023 11:12 AM EST) Anatomical Region Laterality Modality Mammography 01/15/2023 1:42 PM EST Narrative 01/16/2023 11:12 AM EST [facility] Diagnostic Imaging Department [address] [place], [place] [address] Patient: ??ISATU DEL RIO ?/Age/Sex: 1945 - 77 - F Unit#: ??[id number] ? Location/Status: ??SPDIMAM/REG CLI ? Mnemonic/Ordering Site: [...] probability of hip fracture of 3.3%. Code 77444 Dictating Physician: ??LORAINE FINE MD Electronically Signed by: ??LORAINE FINE MD Dic Date/Time: ??01/16/23 1111 Sign date/Time: ??01/16/23 1112 Procedure Note Loraine Fine MD - 04/10/2023 [facility] Diagnostic Imaging Department [address] [place] [id number] Patient: LIANNA DEL RIOSANTI Pardo./Age/Sex: 1945 - 77 - F Unit#: [id number] Location/Status: SPDIMAM/REG CLI [facility] Ordering Physician: IVONE CHAVEZ MD Richy Dexa [...] density of the femurs bilaterally is 0.816 gm/dy2peshs is 81% of that of young normals [...] probability of hip fracture of 3.3%. Code 04479 Dictating Physician: LORAINE FINE MD Electronically Signed by: LORAINE FINE MD Dic Date/Time: 01/16/23 1111 Sign date/Time: 01/16/23 1112 Ivone Chavez MD IMG BI PROCEDURES Final Resu lt from Last 3 Months or Most Recently Relevant to Health Maintenance Insurance MEDICARE [facility] Advance Directives Documents on File Type Date Recorded Patient Veneer Taper Expl anation Health Care Decision (hx) 08/31/2022 [...] 08/31/2022 HE ALTH CARE PROXY Care Teams Poultry Service Technician Relationship Specialty Start Date End Date Mary Crespo MD [address] [place] [address] PCP - General Internal Medicine 08/04/21
--- OUTSIDE RECORDS SUMMARY | 2024-05-09 14:57 | XMS_ITS | Clinical Summary ---
Author Organization [facility] Address [address] [place] [address] Care Team Providers Care Associate Relations Specialist Name Role Phone Mary Crespo MD Primary Care Provider [phone] Allergies No known active allergies Medications Medication Sig Dispensed Refills Start Date End Date Status anastrozole (ARIMIDEX) 1 MG tablet Take 1 tablet (1 mg total) by mouth daily 0 Active Multiple Vitamin (MULTI VITAMIN DAILY PO) Take by mouth. 0 Active Biotin 1000 MCG CHEW Chew by mouth. 0 Active [place]-3 Fatty Acids (FISH OIL PO) Take by mouth. 0 Active vitamin D3 (cholecalciferol) 25 MCG (1000 UT) tablet Take 1 tablet (25 mcg total) by mouth daily. 0 Active Misc Natural Products (GINKOGIN PO) Take by mouth. 0 Active Apoaequorin (PREVAGEN PO) Take by mouth. 0 Active Turmeric 500 MG TABS Take by mouth. 0 Active Multiple Minerals-Vitamins (TLYJBEI-NFJAYCUNW-NYV C-D3 PO) Take by mouth. 0 Active [...] age to complete this topic Care Teams Associate Relations Specialist Relationship Specialty Start Date End Date Mary Crespo MD [address] [place] [place] [address] PCP - General Mission Assessment Specialist 08/15/21
== END 2024-05-09 14:28 | disposition home or self-care (01) ==
PROVIDERS: PCP Internal Medicine; Visit Provider Internal Medicine
DX: M35.3 Polymyalgia rheumatica (principal); M85.80 Other specified disorders of bone density and structure, unspecified site; E55.9 Vitamin D deficiency, unspecified

== ENCOUNTER → 2024-05-09 13:20 | Outpatient (BNVA) | payer MEDICARE, OTHER, SELFPAY | PROVIDERS: PCP Internal Medicine; Visit Provider Internal Medicine | DX: M35.3 Polymyalgia rheumatica (principal); M85.80 Other specified disorders of bone density and structure, unspecified site; E55.9 Vitamin D deficiency, unspecified | CPT/HCPCS: 99212 ==

== ENCOUNTER 2024-11-27 09:59 | Outpatient (AMB) | payer MEDICARE, OTHER, SELFPAY ==
--- NOTE | 2024-11-27 10:04 | MHC.PC.OV ---
Vital Signs 11/27/24 10:29 Height 5 ft 6 in Weight 150 lb BMI 24.2 BP 124/68 Blood Pressure Location Rt brachial Position Sitting Respiration 18 Pulse 81 Pulse Source Pulse Oximeter Temp 98.1 F Temp Source Oral Pulse Oximetry (%) 98 Oxygen Delivery Method Room Air Intake Visit Reasons: Annual PE/secondary covers Intake Note: Pt is here today for PE. Allergies Egg/Pro Allergy (Unknown, Uncoded 11/27/24 10:30) sick to her stomach Medication List - Last Reconciled 11/27/24 by Mary Crespo MD alendronate 70 mg PO QWEEK anastrozole 1 mg PO DAILY biotin PO calcium acetate PO dextrin (Fiber (dextrin)) PO docusate sodium (Stool Softener) PO ginkgo biloba PO multivitamin (Daily Multi-Vitamin) PO prednisone 20 mg PO DAILY turmeric PO Tobacco use date assessed: 11/27/24 Fall risk assessment: 1 Fall in past year Last assessed Fall Risk: 11/27/24 Dental Screening Dental Screen Date: 11/27/24 Did you have a dental visit in the last 12 months?: Yes Did you have a dental problem in the last 6 months where you did not have access to dental care?: No Was dental information given to patient?: Patient has dentist HPI Annual PE/secondary covers HPI Details Patient presents for physical PFSH Medical History (Updated 11/27/24 @ 11:45 by Mary Crespo MD) Osteopenia Ductal carcinoma in situ (DCIS) of left breast Breast mass, left Toenail fungus Hearing loss Mammogram normal Abnormal colonoscopy Insomnia Hyperlipidemia Annual physical exam Vitamin D deficiency Surgical History No pertinent past surgical history Family History Father No problems noted. Mother Diabetes Melanoma Uterine cancer Brother Substance use disorder Social History Housing: House Alcohol intake: current Alcohol intake frequency: a few times a week Patient Tobacco Use Status: Never used Tobacco e-Cigarette/Vaping Use: Never Used service: No Current occupational status: retired Cognitive needs: No Hearing needs: Yes Vision needs: Yes Questionnaire PHQ-9 Over the last 2 weeks, how often have you been bothered by any of the following problems? 1. Little interest or pleasure in doing things: not at all 2. Feeling down, depressed, or hopeless: not at all 3. Trouble falling or staying asleep, or sleeping too much: not at all 4. Feeling tired or having little energy: not at all 5. Poor appetite or overeating: not at all 6. Feeling bad about yourself - or that you are a failure or have let yourself or your family down: not at all 7. Trouble concentrating on things, such as reading the newspaper or watching television: not at all 8. Moving or speaking so slowly that other people could have noticed. Or the opposite - being so fidgety or restless that you have been moving around a lot more than usual: not at all 9. Thoughts that you would be better off or of hurting yourself in some way: not at all Total score: 0 Depression Screening Interpretation: Negative Depression Screening Done: Yes Source: Developed by Drs. Sven Pitt, Ailyn Chatterjee, Carl Calvo and colleagues, with an educational jonny from [employer]. Thrive Questionnaire Date Thrive assessed: 03/28/24 I am a: Patient What is your living situation today?: I have a steady place to live Within the past 12 months, did the food you bought not last and you didn't have the money to get more?: Never true Within the past 12 months, did you worry whether your food would run out before you got money to buy more?: Never true Do you have trouble paying for medicines?: No Do you have trouble getting transportation to medical appointments?: No Do you have trouble paying your heating and electricity bill?: No Do you have trouble taking care of your child, family member or friend?: No Do you have trouble with day-to-day activities such as bathing, preparing meals, shopping, managing finances, etc.?: No Are you currently unemployed and looking for a job?: I choose not to answer this question Are you interested in more education?: No Please select the resources that you would like help with: None Currently or been in a relationship where the following occur: No concerns reported THRIVE Score: 0 TRINH-7 AMB Questionnaire TRINH-7 Date TRINH - 7 assessed: 03/28/24 Feeling nervous, anxious, or on edge: 0 = Not at all Not being able to stop or control worryin = Not at all Worrying too much about different things: 0 = Not at all Trouble relaxin = Not at all Being so restless that it is hard to sit still: 0 = Not at all Becoming easily annoyed or irritable: 0 = Not at all Feeling afraid as if something awful might happen: 0 = Not at all Total TRINH-7 score (0-4 normal; 5-9 mild; 10-14 moderate; 15-21 severe): 0 Source: Developed by Drs. Sven Pitt, Ailyn Chatterjee, Carl Calvo and colleagues, with an educational jonny from [employer]. Review of Systems Const All systems reviewed & are unremarkable except as noted in HPI and below Eyes Reports no additional complaints ENT Reports no additional complaints Card Reports no additional complaints Resp Reports no additional complaints GI Reports no additional complaints Reports no additional complaints Physical exam (Primary Care) Vital Signs: Last Vital Signs Temp 98.1 F 11/27/24 10:29 Pulse 81 11/27/24 10:29 Resp 18 11/27/24 10:29 BP 124/68 11/27/24 10:29 Pulse Ox 98 11/27/24 10:29 Oxygen Delivery Method Room Air 11/27/24 10:29 BMI result Body Mass Index 24.2 Tobacco/Smoking Status: Tobacco use Status Tobacco use date assessed 11/27/24 11/27/24 10:40 Patient Tobacco Use Status Never used Tobacco 11/27/24 10:04 e-Cigarette/Vaping Use Never Used 11/27/24 10:04 PHQ-9: PHQ-9 Score PHQ-9: Total score 0 11/27/24 10:40 Depression Screening Interpretation: Negative Thrive Assessment: Date of Thrive Assessment Date Thrive assessed 03/28/24 11/27/24 10:04 Currently or been in a relationship where the following occur: No concerns reported Const General: no acute distress HENMT Head: Yes normal to inspection Ears: TM's normal bilaterally Throat: Yes posterior oropharynx normal Eyes General: appearance normal, both eyes and all related structures Resp Effort & Inspection: normal respiratory effort Auscultation: clear to auscultation bilaterally Cardio Rhythm: regular rhythm Heart sounds: S1 normal heart sound present and S2 normal heart sound present GI Inspection: Yes normal to inspection Palpation (GI): Soft to palpation Percussion: Yes normal to percussion Auscultation: normal bowel sounds Coding Level of Care Code Est Pt Prev Care >65y(71511) Diagnoses Gallstones K80.20 Osteopenia M85.80 PMR (polymyalgia rheumatica) M35.3 Annual physical exam Z00.00 Ductal carcinoma in situ (DCIS) of left breast D05.12 Assessment & Plan Assessment & Plan (1) Gallstones: Comment: History of gallstones, intermittent right upper quadrant pain not associated with diet/food intake Code(s): K80.20 - Calculus of gallbladder without cholecystitis without obstruction Category: Medical Plan: Obtain abdominal ultrasound to evaluate for chronic cholecystitis (2) Osteopenia: Comment: DEXA [facility] 10/2018 osteopenia, T score -1.7 femur, DEXA [facility] 01/2023, started on alendronate 03/2024 by rheumatology Code(s): M85.80 - Other specified disorders of bone density and structure, unspecified site Category: Medical Plan: Continue vitamin-D and alendronate follow-up with rheumatology (3) PMR (polymyalgia rheumatica): Comment: f/u Dr. Sheppard Code(s): M35.3 - Polymyalgia rheumatica Category: Medical Plan: Follow-up with rheumatology on tapering dose of prednisone down to 8 mg daily (4) Annual physical exam: Code(s): Z00.00 - Encounter for general adult medical examination without abnormal findings Category: Medical Plan: Well-balanced diet regular physical activity discussed with the patient. She is up-to-date with the mammogram colonoscopy (5) Ductal carcinoma in situ (DCIS) of left breast: Comment: dxd 07/24, f/u Jacki, lumpectomy 09/23 Code(s): D05.12 - Intraductal carcinoma in situ of left breast Category: Medical Plan: Follow-up with breast center at [place] Orders: Orders US abdomen limited Today K80.20 - Calculus of gallbladder without cholecystitis without obstruction
[2024-11-27 10:29] VITALS: BP 124/68; PULSE 81; RESP 18; TEMP 36.7; O2SAT 98; BMI 24.2
--- OUTSIDE RECORDS SUMMARY | 2024-11-27 12:02 | XMS_ITS | Clinical Summary ---
Author Organization [facility] Address [address] [place] [address] Phone Care Team Providers Care Store Group Manager Name Role Phone Mary Crespo MD Primary Care Provider Allergies No known active allergies Medications biotin 1,000 mcg tablet,chewable Chew by mouth. Active cholecalciferol (VITAMIN D-3) 25 mcg (1,000 unit) tablet Take 1 tablet (25 mcg total) by mouth daily. Active CALCIUM-MAGNESI UM-ZINC ORAL Take by mouth. Ac tive OMEGA-3 FATTY ACIDS ORAL Take by mouth. Acti ve multivitamin with minerals (CENTRUM/CERTAV IT) 18-400 mg-mcg tablet tablet Take by mouth. Activ e turmeric root extract 500 mg tablet Take by mouth. Activ e anastrozole (ARIMIDEX) 1 mg TAKE 1 TABLET BY MOUTH EVERY DAY 90 tablet 3 5 Active alendronate (FOSAMAX) 70 mg tablet 1 TABLET ONCE WEEKLY INSTRUCTED 5 Active predniSONE (DELTASONE) 20 mg tablet Take 1 tablet (20 mg total) by mouth 1 (one) time each day. 5 Active Surgical History Surgery Date Site/Laterality Comments BREAST LUMPECTOMY Medical History Medical History Date Comments Breast cancer (CMS/HCC V24, CMS/HCC V28) Family History Medical History Relation Name Comments Cancer Mother Melonoma Relation Name Status Comments Mother Social History Tobacco Use Types Packs/Day Years Used Date Smoking Tobacco: Never Smokeless Tobacco: Never Alcohol Use Standard Drinks/Week Comments Yes 0 (1 standard drink = 0.6 oz pur e alcohol) Comments No Sex and Gender Information Value Date Recorded Sex Assigned at Not on file Legal Sex Female 12:30 AM EST Gender Identity Not on file Sexual Orientation Not on file Obstetrics History Para Term AB IAB SAB Ectopic Multiple Livin g Live Births 5 Last Filed Vital Signs Vital Sign Reading Time Taken Comments Blood Pressure 131/76 07/09/2024 1:17 PM EDT Pulse 81 07/09/2024 1:17 PM EDT Temperature 36.3 C (97.3 F) 07/09/2024 1:17 PM EDT Respiratory Rate - - Oxygen Saturation 99% 05/13/2024 1:10 PM EDT Inhaled Oxygen Concentration - - Weight 63 kg (139 lb) 07/18/2024 9:57 AM EDT Height 167.6 cm (5' 6 ) 07/18/2024 9:57 AM EDT Body Mass Index 22.44 07/18/2024 9:57 AM EDT Plan of Treatment Upcoming Encounters Date Type Department Care Team (Late st Contact Info) Description 01/21/2025 2:45 PM EST Office Visit Breast Care [address] [phone] Kristin Ricketts MD [address] [place] [phone] 02/02/2025 1:15 PM EST Office Visit [facility] Hematology Oncology [address] [place] [phone] Ivone Chavez MD [address] [place] [phone] 07/17/2025 10:00 AM EDT [facility] [address] [phone] Health Maintenance Due Date Last Done Comments DTaP,Tdap,and Td Vaccines (1 - Tdap) 1965 Zoster Vaccines (1 of 2) 1965 Pneumococcal Vaccine: 50+ Years (2 of 2 - PCV) 05/28/2018 05/28/2017 RSV Immunization Adult Patients (1 - 1-dose 75+ series) 2021 Cholesterol Screening (Lipid Panel) 02/12/2022 Falls Risk Assessment 02/12/2022 Hepatitis C Screening 02/12/2022 Medicare Annual Wellness Visit 02/12/2022 Social Influencers of Health Screening 02/12/2022 Depression Screening 03/05/2024 COVID-19 Vaccine ( season) 2024 01/03/2023, 09/25/2021, 01/18/2021, Additional history exists Influenza Vaccine (#1) 2024 01/03/2023, 2019 Osteoporosis Screening (Bone Density Screening) 01/16/2033 01/16/2023, [...] age to complete this topic Meningococcal B Vaccine Aged Out No l onger eligible based on patient's age to complete this topic RSV Immunization Patients Under 20 months Aged Out No longer eligible based on [...] 1:42 PM EST Narrative 01/16/2023 11:12 AM [facility] Diagnostic Imaging Department [address] [place], [place] [id number] Patient: ISATU DEL RIO Toño RobbB./Age/Sex: 1945 - 77 - F Unit#: [id number] Location/Status: SPDIMA/REG CLI Mnemonic/Ordering [facility] Ordering Physician: IVONE CHAVEZ MD [facility] Dexa Axial Skeleton - 01/15/23 1418 Report Status:Signed HISTORY: The patient is a 77-year-old postmenopausal female with clinical concern for metabolic bone disease. FINDINGS: Dual [...] 108% of that of age matched controls. This yields a T-score of -1.5 and a Z-score of 0.5 which is diagnostic of osteopenia. IMPRESSION: 1. Osteopenia. There has been a decrease of 4.9% in bone mineral density in the lumbar spine since the prior examination of 10/23/2018. There has been a decrease of 9.6% in bone mineral density in the right femur and a decrease of 6.8% in bone mineral density in the left femur. 2. FRAX analysis yields a 10-year probability of major osteoporotic fracture of 16.5% and a 10-year probability of hip fracture of 3.3%. Code 34372 Dictating Physician: LORAINE FINE MD Electronically Signed by: LORAINE FINE MD Dic Date/Time: 01/16/23 1111 Sign date/Time: 01/16/23 1112 Procedure Note Loraine Fine MD - 04/10/2023 [facility] Diagnostic Imaging Department [address] [place], [place] [id number] Patient: ELIANEISATU./Age/Sex: 1945 - 77 - F Unit#: [id number] [facility] Ordering Physician: IVONE CHAVEZ MD [facility] Dexa Axial Skeleton - 01/15/23 - [id number] Report Status:Signed HISTORY: The patient is a [...] density of the femurs bilaterally is 0.816 gm/eu4mixmy is 81% of that of young normals [...] probability of hip fracture of 3.3%. Code 20657 Dictating Physician: LORAINE FINE MD Electronically Signed by: LORAINE FINE MD Dic Date/Time: 01/16/23 1111 Sign date/Time: 01/16/23 1112 Ivone Chavez MD IMG BI PROCEDURES Final Resu lt from Last 3 Months or Most Recently Relevant to Health Maintenance Insurance MEDICARE [facility] Advance Directives Documents on File Type Date Recorded Patient Licensed Sales Assistant Expl anation Health Care Decision (hx) 08/31/2022 [...] 08/31/2022 [facility] Care Teams Store Group Manager Relationship Specialty Start Date End Date Mary Crespo MD PCP - General Internal Medicine 08/04/21
--- OUTSIDE RECORDS SUMMARY | 2024-11-27 12:02 | XMS_ITS | Clinical Summary ---
Author Organization [facility] Address [address] [place] [address] Care Team Providers Care Technology Instructor Name Role Phone Mary Crespo MD Primary Care Provider [phone] Allergies No known active allergies Medications Medication Sig Dispensed Refills Start Date End Date Status anastrozole (ARIMIDEX) 1 MG tablet Take 1 tablet (1 mg total) by mouth daily 0 Active Multiple Vitamin (MULTI VITAMIN DAILY PO) Take by mouth. 0 Active Biotin 1000 MCG CHEW Chew by mouth. 0 Active [place]-3 Fatty Acids (FISH OIL PO) Take by mouth. 0 Active vitamin D3 (cholecalciferol) 25 MCG (1000 UT) tablet Take 1 tablet (25 mcg total) by mouth daily. 0 Active Misc Natural Products (GINKOGIN PO) Take by mouth. 0 Active Apoaequorin (PREVAGEN PO) Take by mouth. 0 Active Turmeric 500 MG TABS Take by mouth. 0 Active Multiple Minerals-Vitamins (GVJJUKS-BGZLUAXPM-RGC C-D3 PO) Take by mouth. 0 Active [...] 68 08/24/2023 9:15 AM EDT Temperature 36.7 C (98.1 F) 08/24/2023 9:15 AM EDT Respiratory Rate - - Oxygen Saturation 100% 08/24/2023 9:15 AM EDT Inhaled Oxygen Concentration - - Weight 61.2 kg (135 lb) 08/24/2023 9:15 AM EDT Height 167.6 cm (5' 6 ) 01/02/2023 9:34 AM EDT Body Mass Index 21.79 01/02/2023 9:34 AM EDT Plan of Treatment Health Maintenance Due Date Last Done Comments Hepatitis C Screening 1945 COVID-19 Vaccine (#1) 1945 Depression Screening 1958 Preventative Health Evaluation 1964 DTap / Tdap / Td (1 - Tdap) 1965 Shingrix-Zoster Vaccine (1 of 2) 1996 Fall Risk Assessment 2011 Osteoporosis Screening (DEXA Scan) 2011 Pneumococcal Vaccine (1 of 1 - PCV) 2011 RSV Adult > 60+ Yrs or Pregn ant (1 - 1-dose 75+ series) 2021 Influenza Vaccine (#1) 2024 Hepatitis B Vaccines Aged Out No long er eligible based on patient's age to complete this topic RSV Ped < 20 months Aged Out No longe r eligible based on patient's age to complete this topic Care Teams Technology Instructor Relationship Specialty Start Date End Date Mary Cerspo MD [address] [place] [phone] PCP - General Locomotive Observer 08/15/21
== END 2024-11-27 11:16 | disposition home or self-care (01) ==
LOC: HO.HMCC 09:59
PROVIDERS: PCP Internal Medicine; Visit Provider Internal Medicine
DX: Z00.01 Encounter for general adult medical examination with abnormal findings (principal); K80.20 Calculus of gallbladder without cholecystitis without obstruction; M85.80 Other specified disorders of bone density and structure, unspecified site; M35.3 Polymyalgia rheumatica; D05.12 Intraductal carcinoma in situ of left breast

== ENCOUNTER → 2024-11-27 09:59 | Outpatient (BNVA) | payer MEDICARE, OTHER, SELFPAY | PROVIDERS: PCP Internal Medicine; Visit Provider Internal Medicine | DX: Z00.00 Encounter for general adult medical examination without abnormal findings (principal); D05.12 Intraductal carcinoma in situ of left breast; M35.3 Polymyalgia rheumatica; M85.80 Other specified disorders of bone density and structure, unspecified site; K80.20 Calculus of gallbladder without cholecystitis without obstruction | CPT/HCPCS: 99397 ==

== ENCOUNTER 2025-02-19 09:44 | Outpatient (REF) | payer MEDICARE, OTHER, SELFPAY ==
--- NOTE | ~2025-02-19 | US_ITS ---
CLINICAL HISTORY: K80.20 - Calculus of gallbladder without cholecystitis without obstruction US limited to right upper quadrant Comparison: None Findings: Visualized segments of the liver reveal no focal lesions. Common bile duct measures 2 mm. Gallbladder appears to be filled with shadowing stones. No wall thickening or pericholecystic fluid.. Trial Justice notes reveal the presence of tenderness during scanning in the region of the gallbladder fossa. Impression: 1. Cholelithiasis, without wall thickening or pericholecystic fluid. There is some reported tenderness during scanning over the right upper quadrant. Findings are indeterminate in terms of meeting sonographic criteria for cholecystitis. This document has been electronically signed by: Marcello Hackett MD on 02/19/2025 14:38:37
--- OUTSIDE RECORDS SUMMARY | 2025-02-19 11:34 | XMS_ITS | Clinical Summary ---
Author Organization [facility] Address [address] [place] [address] Phone Care Team Providers Care Radio Frequency Technician Name Role Phone Mary Crespo MD Primary Care Provider [phone] Allergies No known active allergies Medications biotin [...] 1 (one) time each day. 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 ([facility]/HCC V24, [facility]/HCC V28) (Primary Dx) from Last 3 Months Surgical History Surgery Date Site/Laterality Comments BREAST LUMPECTOMY Medical History Medical History Date Comments Breast cancer ([facility]/HCC V24, [facility] V28) Family History Medical History Relation Name [...] Sign Reading Time Taken Comments Blood Pressure 145/67 02/02/2025 1:20 PM EST Pulse 71 02/02/2025 1:20 PM EST Temperature 36.2 C (97.2 F) 02/02/2025 1:20 PM EST Respiratory Rate - - Oxygen Saturation 100% 02/02/2025 1:20 PM EST Inhaled Oxygen Concentration - - Weight 69.9 kg (154 lb) 02/02/2025 1:20 PM EST Height 167.6 cm (5' 6 ) 07/18/2024 9:57 AM EDT Body Mass Index 24.86 07/18/2024 9:57 AM EDT Plan of Treatment Upcoming Encounters Date Type Department Care Team (Late st Contact Info) Description 04/29/2025 4:00 PM EST Office Visit Breast Care [address] [phone] Kristin Ricketts MD [address] [place] [phone] 07/17/2025 10:00 AM EDT [facility]ointment [facility] at [address] [phone] 12/09/2025 11:45 AM EDT Office Visit [facility] Hematology Oncology [address] [place] [phone] Jessee Chavez MD [address] [place] [address] Health Maintenance Due Date Last Done Comments [...] Screening 02/12/2022 Depression Screening 03/05/2024 COVID-19 Vaccine (7 - Moderna risk season) 2025 12/30/2024, 01/03/2023, 09/25/2021, Additional history exists Osteoporosis Screening (Bone Density Screening) 01/16/2033 01/16/2023, 10/23/2018 Influenza Vaccine Completed 12/30/2024, , 12/09/2019 HIB Vaccines Aged Out No longer eligi [...] Procedure Name Priority Date/Time Associated Diagnosis Comments [facility] DEXA AXIAL SKELETON Routine 01/16/2023 11:12 AM EST Other specified disorders of bone density and structure, multiple sites from Last 3 Months or Most Recently Relevant to Health Maintenance Results * [facility] DEXA AXIAL SKELETON (01/16/2023 11:12 AM EST) Anatomical Region Laterality Modality Mammography 01/15/2023 1:42 PM EST Narrative 01/16/2023 11:12 AM EST [facility] Diagnostic Imaging Department [address] [place], [place] [phone] Patient: ISATU DEL RIO D.O.B./Age/Sex: 1945 - 77 - F Unit#: [id number] Location/Status: SPDIMA/REG CLI [facility] Ordering Physician: JESSEE CHAVEZ MD [facility] Dexa Axial Skeleton - 01/15/23 - [id number] Report Status:Signed HISTORY: The patient is a [...] probability of hip fracture of 3.3%. Code 27767 Dictating Physician: LORAINE FINE MD Electronically Signed by: LORAINE FINE MD Dic Date/Time: 01/16/23 1111 Sign date/Time: 01/16/23 1112 Procedure Note Loraine Fine MD - 04/10/2023 [facility] Diagnostic Imaging Department [address] [place] [address] Patient: ELIANEISATU D.O.B./Age/Sex: 1945 - 77 - F Unit#: [id number] Location/Status: SPDIMA/REG CLI Mnemonic/Ordering Site: [facility] Ordering Physician: JESSEE CHAVEZ MD [facility] Dexa Axial Skeleton - 01/15/23 - [id number] Report Status:Signed HISTORY: The patient is a [...] density of the femurs bilaterally is 0.816 gm/sc4rjnih is 81% of that of young normals [...] probability of hip fracture of 3.3%. Code 66805 Dictating Physician: LORAINE FINE MD Electronically Signed by: LORAINE FINE MD Dic Date/Time: 01/16/23 1111 Sign date/Time: 01/16/23 1112 Jessee Chavez MD IM BI PROCEDURES Final Resu lt from Last 3 Months or Most Recently Relevant to Health Maintenance Insurance MEDICARE [employer] Advance Directives Documents on File Type Date Recorded Patient Hand Tier Expl anation Health Care Decision (hx) 08/31/2022 [...] 08/31/2022 [facility] Care Teams Radio Frequency Technician Relationship Specialty Start Date End Date Mary Crespo MD [address] [place] [phone] PCP - General Internal Medicine 08/04/21
--- OUTSIDE RECORDS SUMMARY | 2025-02-19 11:34 | XMS_ITS | Clinical Summary ---
Author Organization [facility] Prior to 08/02/24 Address [address] [place] [address] Care Team Providers Care Welder Boilermaker Name Role Phone Mary Crespo MD Primary Care Provider [phone] Allergies No known active allergies Medications Medication Sig Dispensed Refills Start Date End Date Status anastrozole (ARIMIDEX) 1 MG tablet Take 1 tablet (1 mg total) by mouth daily 0 Active Multiple Vitamin (MULTI VITAMIN DAILY PO) Take by mouth. 0 Active Biotin 1000 MCG CHEW Chew by mouth. 0 Active [place]-3 Fatty Acids (FISH OIL PO) Take by mouth. 0 Active vitamin D3 (cholecalciferol) 25 MCG (1000 UT) tablet Take 1 tablet (25 mcg total) by mouth daily. 0 Active Misc Natural Products (GINKOGIN PO) Take by mouth. 0 Active Apoaequorin (PREVAGEN PO) Take by mouth. 0 Active Turmeric 500 MG TABS Take by mouth. 0 Active Multiple Minerals-Vitamins (LCJFMKG-AUTJRVYQL-ZQZ C-D3 PO) Take by mouth. 0 Active [...] age to complete this topic Care Teams Welder Boilermaker Relationship Specialty Start Date End Date Mary Crespo MD [address] [facility] [place] [phone] PCP - General Hot Blast Worker 08/15/21
[2025-02-19 14:12] LABS: MANUAL DIFF FLAG NO
[2025-02-19 14:25] LABS: Hematocrit 39.5 % (37.0-47.0); Hemoglobin 13.3 g/dl (12.0-16.0); Imm Gran Abs Auto 0.01 X10*3/uL (0.00-0.03); Imm Gran Pct Auto 0.2 % (0.0-0.4); Lymphocytes Absolute Auto 1.3 X10*3/uL (1.2-4.9); Mean Corpuscular HGB Conc 33.7 g/dl (31.0-35.0); Mean Corpuscular Hemoglobin 34.0 pg (27.0-33.0); Mean Corpuscular Volume 101.0 fL (80.0-98.0); NRBC Abs Auto 0.000 X10*3/uL (0.0-0.012); NRBC Pct Auto 0.0 /100WBC (0.0-0.2); Platelet Count 239 X10*3/uL (160-400); Red Blood Count 3.91 X10*6/uL (4.20-5.50); White Blood Count 4.2 X10*3/uL (4.8-10.8)
[2025-02-19 15:25] LABS: Alanine Aminotransferase 21 U/L (0-31); Albumin Level 4.3 g/dL (3.5-5.0); Alkaline Phosphatase 64 U/L (39-117); Anion Gap 10 (12-20); Aspartate Amino Transferase 28 U/L (5-31); Blood Urea Nitrogen 19 mg/dL (9-16); Calcium 9.0 mg/dL (8.4-10.2); Carbon Dioxide 29 mmol/L (22-29); Chloride 107 mmol/L (96-108); Cholesterol 202 mg/dL (<200); Estimated Glomerular Filt Rate > 60; HDL Cholesterol 80 mg/dL (>40); Potassium 4.2 mmol/L (3.3-5.1); Sodium 142 mmol/L (135-145); Total Protein 6.6 g/dL (6.5-8.0); Triglycerides 85 mg/dL (<150)
== END 2025-02-19 09:45 ==
LOC: HO.HMGCX 09:44
PROVIDERS: PCP Internal Medicine; Visit Provider Internal Medicine
DX: Z00.00 Encounter for general adult medical examination without abnormal findings (principal); K80.20 Calculus of gallbladder without cholecystitis without obstruction; M85.80 Other specified disorders of bone density and structure, unspecified site; E78.5 Hyperlipidemia, unspecified; E55.9 Vitamin D deficiency, unspecified
CPT/HCPCS: 36415; 76705; 80053; 80061; 82306; 84443; 85025